=== PATIENT | female | born 1935 | race Caucasian/White ===

== ENCOUNTER 2024-08-22 13:41 | Inpatient (IN) | payer MEDICARE, OTHER, SELFPAY ==
[2024-08-22] VITALS (14 sets, daily range): BP systolic 142–167; BP diastolic 69–96; PULSE 78–92; RESP 18–34; TEMP 36.4–36.7; O2SAT 91–97; BMI 29.6
--- NOTE | 2024-08-22 14:07 | DI.RAD.S_ITS ---
PROCEDURE: XR CHEST 1V INDICATIONS: Shortness of breath TECHNIQUE: One view of the chest was acquired. COMPARISON: None. FINDINGS: Surgical changes and devices: None. Lungs and pleura: Lungs are abnormal with subpulmonic bilateral pleural effusions and suspected pneumonia at the medial lung bases bilaterally. No pleural effusions or pneumothorax. Mediastinum: Mediastinal contours appear normal. Heart size is normal. Bones and chest wall: No suspicious bony lesions. Overlying soft tissues appear unremarkable. IMPRESSION: Small to moderate-sized subpulmonic pleural effusions with consolidation at each lung base medially, reflecting either pneumonia or atelectasis. Dictated by: Олег Delgado M.D. on 08/22/2024 at 15:14 Approved by: Олег Delgado M.D. on 08/22/2024 at 15:15
--- NOTE | 2024-08-22 14:16 | EKG_ITS ---
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
--- NOTE | 2024-08-22 14:49 | ED_ITS ---
HPI - SOB/Dyspnea General Chief Complaint: Shortness of Breath/Dyspnea Stated Complaint: SOB, edema both legs , cough Time Seen by Provider: 08/22/24 14:49 Source: patient Mode of arrival: Wheelchair Limitations: no limitations History of Present Illness HPI Narrative: Patient is a 89-year-old female presenting for cough, bilateral lower extremity swelling and dyspnea. She denies any pain anywhere. States it symptoms has been ongoing persistent for the past several months but states that these symptoms have persisted therefore decided come into the ED for further evaluation treatment. Patient states that he has not seen a doctor in ?years. She states that all of her symptoms are just becoming ?tire some therefore decided come into the ED for further evaluation treatment. She denies any other symptoms such as headache visual disturbances chest pain or any other GI/ symptoms time. She does however state that she feels ?bubbling/discomfort to her right-sided abdomen. Related Data Allergies Allergy/AdvReac Type Severity Reaction Status Date / Time No Known Drug Allergies Allergy Verified 08/22/24 14:03 Review of Systems Review of Systems Narrative: General: Denies fever, chills, weight loss HEENT: Denies headache, eye drainage, eye irritation, head trauma, sore throat, voice change Cardiovascular: Denies any chest pain, palpitations, tachycardia Respiratory: Positive shortness of breath, cough, denies wheeze, stridor GI/: Denies any abdominal pain, nausea, vomiting, diarrhea, bright red blood per rectum, melanotic stools, urinary frequency, urinary retention, dysuria, hematuria MSK: Positive bilateral lower extremity swelling Skin: Denies any rashes, lesions, discoloration Neuro: Denies any headache, lightheadedness, dizziness, fainting, weakness Psych: Denies SI/HI Patient History Social History Smoking Status: Unknown if ever smoked Smoking Status: Unknown if ever smoked Exam Narrative Exam Narrative: General: Cooperative, well-developed, not in acute distress HEENT: Normocephalic, atraumatic, PERRLA, normal sclera, eyelids normal Neck: Active full range of motion, atraumatic Chest: Normal to inspection, negative crepitus, no overlying erythema ecchymosis Respiratory: Normal respiratory effort, not in acute respiratory distress, clear to auscultation bilaterally negative cough, wheeze, tachypnea, rhonchi, rales Cardiology: Regular rate rhythm negative gallop, murmur, rubs GI/: No tenderness to palpation, soft, non rigid, normal to inspection, exam deferred MSK: Full active range of motion in all 4 extremities, atraumatic, no tenderness to palpation of any bony prominences, +3 pitting edema to bilateral lower extremities Skin: No rashes or lesions noted Neuro: Alert awake oriented x3, moves all 4 extremities spontaneously, cranial nerves intact, able to answer all questions appropriately follows commands appropriately Psych: Cooperative, negative suicidal or homicidal ideations Initial Vital Signs Initial Vital Signs: Vital Signs Temperature 97.9 F 08/22/24 14:03 Pulse Rate 84 08/22/24 14:03 Respiratory Rate 18 08/22/24 14:03 Blood Pressure 160/74 H 08/22/24 14:03 Pulse Oximetry 94 08/22/24 14:03 Oxygen Delivery Method Room Air 08/22/24 14:03 Course Orders Ordered: ED Orders 08/22/24 14:07 XR chest 1V Stat EKG-12 Lead Stat Measure peak expiratory flow STAT RT Consult Eval and Treat STAT 08/22/24 14:49 Complete Blood Count AUTO DIFF Stat Comprehensive Metabolic Panel Stat D Dimer Stat Lipase Stat MAG [Magnesium] Stat NT-proBNP (BNP-Adult 18+) Stat Pathologist Review (for CBC) Stat Prothrombin Time INR Stat Troponin I Stat 08/22/24 14:51 US periph venous low extrem bi Stat 08/22/24 14:57 CT abdomen pelvis w con Stat 08/22/24 15:28 CT angio chest PE protocol Stat 08/22/24 16:14 PT [Prothrombin Time INR] Stat PTT Partial Thromboplastin Sunil Stat Packed Cells Stat Type and Screen Stat Vital Signs Vital signs: Vital Signs - 8 hr 08/22/24 14:03 08/22/24 14:55 08/22/24 14:55 Temperature 97.9 F Pulse Rate 84 88 Respiratory Rate 18 33 H Blood Pressure 160/74 H 142/78 H Pulse Oximetry 94 97 Oxygen Delivery Method Room Air 08/22/24 15:00 08/22/24 15:00 08/22/24 15:30 Temperature Pulse Rate 87 84 Respiratory Rate 34 H 29 H Blood Pressure 149/81 H Pulse Oximetry 97 96 Oxygen Delivery Method 08/22/24 15:31 08/22/24 15:31 08/22/24 15:44 Temperature Pulse Rate 85 87 Respiratory Rate 31 H 22 Blood Pressure 167/80 H Pulse Oximetry 94 91 Oxygen Delivery Method Room Air MDM - SOB/Dyspnea Differential Diagnosis Differential diagnosis: Likely acute exacerbation of chronic obstructive airways disease, congestive heart failure, community acquired pneumonia, asthma with exacerbation, pulmonary embolism and other (ACS, pneumonia, electrolyte abnormality) Lab Data 08/22/24 14:49 08/22/24 14:49 Labs: Lab Results 08/22/24 08/22/24 Range/Units 14:49 16:14 WBC 7.0 (4.5-11.0) X10^3/uL RBC 2.98 L (4.0-5.2) X10^6/uL Hgb 4.4 L* (12.0-16.0) g/dL Hct 16.5 L* (36-46) % MCV 55.5 L (80-100) fL MCH 14.9 L (26-34) PG MCHC 26.8 L (30-36) % RDW 22.6 H (11.6-14.8) % Plt Count 371 (150-400) X10^3/uL Neut % (Auto) 81.7 H (50-75) % Lymph % (Auto) 9.7 L (25-40) % [place] % (Auto) 5.9 (3-14) % Eos % (Auto) 1.1 L (2-4) % Baso % (Auto) 1.6 (0-2) % Neut # (Auto) 5700 (6937-2530) /uL Lymph # (Auto) 700 L (4963-3266) /uL [place] # (Auto) 400 (0-900) /uL Eos # (Auto) 100 (0-450) /uL Baso # (Auto) 100 (0-100) /uL RBC Morphology See below Hypochromasia 3+ H Anisocytosis 2+ H Microcytosis 3+ H Acanthocytes (Spur) 1+ H Schistocytes 1+ H PT 11.8 11.9 (9.4-12.5) SECONDS INR 1.0 1.1 (0.9-1.3) APTT 31 (25.1-36.5) SECONDS D-Dimer 563 H (<500) ng/ml Sodium 136 L (137-145) mmol/L Potassium 4.3 (3.4-5.1) mmol/L Chloride 107 (98-107) mmol/L Carbon Dioxide 21 L (22-32) mmol/L BUN 25 H (7-17) mg/dL Creatinine 1.48 H (0.52-1.04) mg/dL Estimated GFR 34 L (>60) mL/min BUN/Creatinine Ratio 16.9 (6-22) Glucose 140 H (70-99) mg/dL Lactate Cancelled Calcium 8.7 (8.4-10.2) mg/dL Magnesium 2.2 (1.6-2.3) mg/dL Total Bilirubin 0.9 (0.2-1.3) mg/dL AST 20 (14-36) IU/L ALT 13 (<35) IU/L Alkaline Phosphatase 88 (38-126) U/L Troponin I < 0.012 (0.01-0.034) ng/mL NT-Pro-B Natriuret Pep 7490 H (<450) pg/mL Total Protein 6.4 (6.3-8.2) g/dL Albumin 3.6 (3.5-5.0) g/dL Globulin 2.8 (1.7-4.1) g/dL Albumin/Globulin Ratio 1.3 (1.0-2.8) Lipase 79 (23-300) U/L Blood Type O Positive Antibody Screen Negative Crossmatch See Detail Imaging Data Chest x-ray: Radiologist's Impression: [address] [address] XRay Report Signed Patient: Leia Nash MR#: [id number] : 1935 Acct:[id number] Age/Sex: 89 / F Date of Service: 08/22/24 Loc: ED Accession Number: [id number] Procedure: XR chest 1V Ordering Provider: Guzman Roblero D.O. PROCEDURE: XR CHEST 1V INDICATIONS: Shortness of breath TECHNIQUE: One view of the chest was acquired. COMPARISON: None. FINDINGS: Surgical changes and devices: None. Lungs and pleura: Lungs are abnormal with subpulmonic bilateral pleural effusions and suspected pneumonia at the medial lung bases bilaterally. No pleural effusions or pneumothorax. Mediastinum: Mediastinal contours appear normal. Heart size is normal. Bones and chest wall: No suspicious bony lesions. Overlying soft tissues appear unremarkable. IMPRESSION: Small to moderate-sized subpulmonic pleural effusions with consolidation at each lung base medially, reflecting either pneumonia or atelectasis. CT scan - abdomen/pelvis: Radiologist's Impression: [place] [address] Ultrasound Report Signed Patient: Leia Nash MR#: [id number] : 1935 Acct:[id number] Age/Sex: 89 / F Date of Service: 08/22/24 Loc: ED Accession Number: [id number] Procedure: US periph venous low extrem bi Ordering Provider: Guzmna Roblero D.O. PROCEDURE: US PERIPH VENOUS LOW EXTREM BI INDICATIONS: swelling TECHNIQUE: Real-time imaging, as well as color and pulse Doppler interrogation, were performed of the deep veins of both legs from the inguinal ligament to the popliteal fossa, with documentation of the visualized calf veins. COMPARISON: None. FINDINGS: Right: The common femoral, femoral, popliteal, and the visualized calf veins are normally compressible, and free of intraluminal thrombus. Color and pulse Doppler demonstrate normal phasic intravascular flow. There is normal augmentation response to distal compression maneuver. Left: The common femoral, femoral, popliteal, and the visualized calf veins are normally compressible, and free of intraluminal thrombus. Color and pulse Doppler demonstrate normal phasic intravascular flow. There is normal augmentation response to distal compression maneuver. IMPRESSION: No findings of deep venous thrombosis in either lower extremity. CT angio chest: Radiologist's Impression: [place] [address] CT Scan Report Signed Patient: Leia Nash MR#: [id number] : 1935 Acct:[id number] Age/Sex: 89 / F Date of Service: 08/22/24 Loc: ED Accession Number: [id number] Procedure: CT angio chest PE protocol Ordering Provider: Guzman Roblero D.O. PROCEDURE: CT ANGIO CHEST PE PROTOCOL INDICATIONS: positive Ddimer TECHNIQUE: After the administration of intravenous contrast, 2 mm thick sections acquired from the pulmonary apices to the posterior costophrenic angles. 3-dimensional maximum intensity projection (MIP) coronal and sagittal reformats were then acquired through the thorax. For radiation dose reduction, the following was used: automated exposure control, adjustment of mA and/or kV according to patient size. COMPARISON: None. FINDINGS: Image quality: Diagnostic. Pulmonary arteries: Pulmonary arteries are normal in size, and demonstrate no intraluminal filling defects to suggest central pulmonary embolism. Lower Neck: No enlarged lymph nodes. Thyroid: No thyroid nodules which require sonographic follow up, per consensus guidelines. Axillae: No enlarged lymph nodes. Chest Wall: Unremarkable except for a posterior left paramedian cutaneous/subcutaneous ovoid lesion is seen measuring up to 2.6 cm in maximal transverse dimension on series 4, image 72. . Bones: Unremarkable. Lungs and Pleura: No pneumothorax. There are bilateral pleural effusions that are moderate in size on the left and moderately severe in size on the right. Within the aerated portion of the left lower lobe, superior segment, there is a rounded pulmonary solid-appearing 1.5 cm mass seen on series 5, image 128. The pleural effusions were best seen on contrast-enhanced abdominal CT scanning to be exudative in appearance. What appears to be atelectatic consolidation is seen at each lower lobe abutting the pleural effusions. A definite pneumonia or large mass is not associated. Heart: Heart size is normal. No pericardial effusion. Thoracic Vessels: No aortic aneurysm. 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 Mediastinum and Stefania: No enlarged lymph nodes. Esophagus: No wall thickening. No significant hiatal hernia. Upper Abdomen: Visualized upper abdomen solid organs and bowel loops appear normal. IMPRESSION: No pulmonary embolus. 1.5 cm pulmonary mass lesion superior segment left lower lobe. Bilateral pleural effusions that have been documented to show a subtle degree of pleural thickening and enhancement, exudative. Follow-up thoracentesis for decompression and cytology/bacterial cultures may be warranted. Ovoid 2.6 cm maximal dimension cutaneous/subcutaneous mid chest posterior left paramedian mass warrants clinical correlation. This could represent a metastatic focus but also may simply represent a sebaceous cyst. ECG Data Interpretation: EKG interpreted ED physician sinus at 89 beats per minute QTC 416, normal axis nonspecific ST changes no STEMI MDM Narrative Medical decision making narrative: Patient is a 89-year-old female without any significant past medical history coming into the ED from home for evaluation of lower extremity swelling ongoing persistent for several months, as well as dyspnea, she states it has been ongoing as well for several months and states that she has not seen a doctor in ?a long time she states that the symptoms are just ?trouble some and therefore was willing to come into the ED for further evaluation treatment. On exam patient with +3 pitting edema to bilateral lower extremities, she has not requiring any supplemental oxygen but she is dyspneic with conversation protecting airway. Lab work was consistent with a hemoglobin of 4.4, patient Hemoccult negative, patient without any other signs of hemorrhage. Consent was obtained and 1 unit PRBC ordered for now given patient with concerns for fluid overload. Troponin negative EKG nonischemic in nature, CTA negative for any PE but does show significant pleural effusion. CT of the abdomen also showing possible colon carcinoma. Findings were informed to patient and daughter they agree with being admitted at this time. The patient's management plan was discussed Dr. Mckeon, who agrees to admit the patient to their service and assumes care of this patient at this time. Full admission orders will be placed by the primary team. Discharge Plan Departure Patient Disposition: Admitted as Observation Clinical Impression: Anemia, Colon stricture, Pleural effusion Admit Date/Time: 08/22/24 17:06 Admit Provider: Fadi Mckeon
--- NOTE | 2024-08-22 14:57 | DI.CT.S_ITS ---
PROCEDURE: CT ABDOMEN PELVIS W CON INDICATIONS: right sided discomfort TECHNIQUE: After the administration of intravenous contrast, axial sections acquired from the lung bases to the pubic symphysis. Coronal and sagittal reformats were performed. For radiation dose reduction, the following was used: automated exposure control, adjustment of mA and/or kV according to patient size. COMPARISON: [facility], CR, XR CHEST 1V, 08/22/2024, 14:21. [facility], CT, CT ANGIO CHEST PE PROTOCOL, 08/22/2024, 15:36. FINDINGS: Image quality: Diagnostic. Lower Chest: Bilateral pleural effusions, moderate on the right and [id number] on the left. A small degree of pleural enhancement and thickening is identified bilaterally, exudative in appearance but nonspecific in etiology. Adjacent airspace consolidation is relatively mild and commensurate with expected atelectasis rather than definite pneumonia.. ABDOMEN: Liver: No definite solid mass. Within the left lateral hepatic segment 2 adjacent hypodensities are present showing slight nodular peripheral enhancement that may represent hemangiomas. Gallbladder: No radiopaque gallstones or wall thickening. Biliary ducts: No biliary dilation. Pancreas: No ductal dilation. Spleen: Size is within normal limits. Adrenal Glands: No adrenal nodules. Kidneys and Ureters: No hydronephrosis. No solid mass. No complex renal cystic lesion which requires follow up. Stomach and Bowel: Normal colonic caliber, without significant wall thickening except at the right colon centered on series 2, image 90 where increased mural thick enhancement and thickening is present constricting the lumen of the colon to the degree that a cecal malignancy is suspected. Adjacent adenopathy is not seen. The area of suspected malignancy measures 3.7 cm AP and also 3.7 cm transverse. Peritoneum: No abnormal intraperitoneal fluid. No free air. Ventral Wall: No significant ventral hernia. Abdominal Nodes: No retroperitoneal or mesenteric adenopathy by size criteria. Vessels: Aorta and inferior vena cava are normal in size. PELVIS: Pelvic Organs: Unremarkable. Bladder: No bladder wall thickening, accounting for underdistention. Pelvic Nodes: No enlarged lymph nodes. Miscellaneous: No inguinal hernias are seen. Bones: No aggressive osseous abnormality. IMPRESSION: Bilateral moderate to moderately severe exudative pleural effusions, with adjacent presumed atelectasis. Unexpected finding of a right colonic constricting segment of bowel abnormality worrisome for representing colon carcinoma. The wall of the colon in this area is thickened and the lumen is narrowed. Note is made of 2 separate but adjacent left lateral hepatic segment hypodensities that may represent hemangiomas but should be further assessed with targeted ultrasound electively to assist in determining whether these could represent metastatic foci. Dictated by: Олег Delgado M.D. on 08/22/2024 at 16:40 Approved by: Олег Delgado M.D. on 08/22/2024 at 16:50
[2024-08-22 15:02] LABS: INR 1.0 (0.9-1.3); Prothrombin Time 11.8 SECONDS (9.4-12.5)
[2024-08-22 15:08] LABS: Alanine Aminotransferase 13 IU/L (<35); Albumin 3.6 g/dL (3.5-5.0); Albumin Globulin Ratio 1.3 (1.0-2.8); Alkaline Phosphatase 88 U/L (38-126); Blood Urea Nitrogen 25 mg/dL (7-17); Calcium 8.7 mg/dL (8.4-10.2); Carbon Dioxide 21 mmol/L (22-32); Chloride 107 mmol/L (98-107); Estimated Glomerular Filt Rate 34 mL/min (>60); Globulin 2.8 g/dL (1.7-4.1); Glucose 140 mg/dL (70-99); HEMOLYSIS < 15 (0-50); Potassium 4.3 mmol/L (3.4-5.1); Sodium 136 mmol/L (137-145); Total Protein 6.4 g/dL (6.3-8.2)
[2024-08-22 15:09] LABS: Lipase 79 U/L (23-300); Magnesium 2.2 mg/dL (1.6-2.3)
[2024-08-22 15:16] LABS: Add Manual Diff / Slide Review NO; Lymphocytes Absolute Auto 700 /uL (1100-4500); Mean Corpuscular HGB Conc 26.8 % (30-36); Mean Corpuscular Hemoglobin 14.9 PG (26-34); Mean Corpuscular Volume 55.5 fL (80-100); Platelet Count 371 X10^3/uL (150-400)
[2024-08-22 15:17] LABS: Hemoglobin 4.4 g/dL (12.0-16.0)
[2024-08-22 15:18] LABS: Hematocrit 16.5 % (36-46)
[2024-08-22 15:19] LABS: NT-proBNP (BNP-Adult 18+) 7490 pg/mL (<450); Troponin I < 0.012 ng/mL (0.01-0.034)
--- NOTE | 2024-08-22 15:28 | DI.CT.S_ITS ---
PROCEDURE: CT ANGIO CHEST PE PROTOCOL INDICATIONS: positive Ddimer TECHNIQUE: After the administration of intravenous contrast, 2 mm thick sections acquired from the pulmonary apices to the posterior costophrenic angles. 3-dimensional maximum intensity projection (MIP) coronal and sagittal reformats were then acquired through the thorax. For radiation dose reduction, the following was used: automated exposure control, adjustment of mA and/or kV according to patient size. COMPARISON: None. FINDINGS: Image quality: Diagnostic. Pulmonary arteries: Pulmonary arteries are normal in size, and demonstrate no intraluminal filling defects to suggest central pulmonary embolism. Lower Neck: No enlarged lymph nodes. Thyroid: No thyroid nodules which require sonographic follow up, per consensus guidelines. Axillae: No enlarged lymph nodes. Chest Wall: Unremarkable except for a posterior left paramedian cutaneous/subcutaneous ovoid lesion is seen measuring up to 2.6 cm in maximal transverse dimension on series 4, image 72. . Bones: Unremarkable. Lungs and Pleura: No pneumothorax. There are bilateral pleural effusions that are moderate in size on the left and moderately severe in size on the right. Within the aerated portion of the left lower lobe, superior segment, there is a rounded pulmonary solid-appearing 1.5 cm mass seen on series 5, image 128. The pleural effusions were best seen on contrast-enhanced abdominal CT scanning to be exudative in appearance. What appears to be atelectatic consolidation is seen at each lower lobe abutting the pleural effusions. A definite pneumonia or large mass is not associated. Heart: Heart size is normal. No pericardial effusion. Thoracic Vessels: No aortic aneurysm. 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 Mediastinum and Stefania: No enlarged lymph nodes. Esophagus: No wall thickening. No significant hiatal hernia. Upper Abdomen: Visualized upper abdomen solid organs and bowel loops appear normal. IMPRESSION: No pulmonary embolus. 1.5 cm pulmonary mass lesion superior segment left lower lobe. Bilateral pleural effusions that have been documented to show a subtle degree of pleural thickening and enhancement, exudative. Follow-up thoracentesis for decompression and cytology/bacterial cultures may be warranted. Ovoid 2.6 cm maximal dimension cutaneous/subcutaneous mid chest posterior left paramedian mass warrants clinical correlation. This could represent a metastatic focus but also may simply represent a sebaceous cyst. Dictated by: Олег Delgado M.D. on 08/22/2024 at 16:50 Approved by: Олег Delgado M.D. on 08/22/2024 at 16:59
[2024-08-22 15:43] LABS: Anisocytosis 2+; Hypochromasia 3+
[2024-08-22 15:44] LABS: Microcytosis 3+
[2024-08-22 15:45] LABS: Acanthocytes 1+; Schistocytes 1+
[2024-08-22 16:32] LABS: INR 1.1 (0.9-1.3); Prothrombin Time 11.9 SECONDS (9.4-12.5)
[2024-08-22 16:34] LABS: PTT Partial Thromboplastin Tim 31 SECONDS (25.1-36.5)
--- NOTE | 2024-08-22 17:16 | PC.NURSE ---
While giving report, lab called stating blood ready, ICU Suresh RN is aware and agrees to start infusion. Charge KB in ED is hand carrying blood to ICU. Physician aware.
--- NOTE | 2024-08-22 18:14 | DI.ECHO.S_ITS ---
[place]+ [facility] : : [id number] : : [place] : : [id number] : : Phone: [phone] Echocardiogram Report + + :Name: LUCIANA VELAZQUEZ Study Date: 08/23/2024 Height: 65 in : :[facility] ReadingLocation: Weight: 178 lb : : Gender: Female BSA: 1.9 m2 : :: 1935 Age: 89 yrs BP: 163/82 mmHg: :Reason For Study: CONGESTIVE HEART FAILURE : :Ordering Physician: TANIKA, : :MADI Dyson Performed By: Malcolm Edmonds : :Referring: MADI SAGASTUME : + + Interpretation Summary The ejection fraction is estimated to be 45-50%. Diastolic function is indeterminate. The left atrium is moderately dilated. The right ventricle is mildly dilated. The right ventricular systolic function is normal. The right atrium is mildly dilated. There is mild tricuspid regurgitation. Pulmonary artery pressures cannot be estimated because of the lack of a measurable TR jet velocity but the IVC suggests a CVP of around 8 mmHg. There is a small left-sided pleural effusion. Procedure: A two-dimensional transthoracic echocardiogram with color flow and Doppler was performed. The study quality was technically good. There is no prior echocardiogram noted for this patient. The patient was in normal sinus rhythm during the exam. Left Ventricle: The left ventricle is normal in size. There is normal left ventricular wall thickness. There is no ventricular septal defect visualized. The ejection fraction is estimated to be 45-50%. There is mild global hypokinesis of the left ventricle. Diastolic function is indeterminate. Right Ventricle: The right ventricle is mildly dilated. The right ventricular systolic function is normal. Atria: The left atrium is moderately dilated. The right atrium is mildly dilated. There is no Doppler evidence for an interatrial shunt. Mitral Valve: The mitral valve leaflets appear mildly thickened. The mitral valve leaflets are mildly calcified. There is trace mitral regurgitation. Aortic Valve: The aortic valve is trileaflet. The aortic valve is slightly calcified. The aortic valve opens well. There is no aortic valve stenosis. No aortic regurgitation is present. Tricuspid Valve: The tricuspid valve leaflets are thin and pliable. There is mild tricuspid regurgitation. Pulmonary artery pressures cannot be estimated because of the lack of a measurable TR jet velocity but the IVC suggests a CVP of around 8 mmHg. Pulmonic Valve: The pulmonic valve is not well seen, but is grossly normal. There is no pulmonic valvular regurgitation. Great Vessels: The aortic root is normal size. The dimensions of the ascending aorta are normal. The pulmonary artery is not well visualized, but is probably normal size. The IVC is of normal diameter and collapses less than 50% with a sniff. This suggests a right atrial pressure of 8 mm Hg. Pericardium/ Pleura There is no pericardial effusion. There is a small left- sided pleural effusion. MMode/2D Measurements & Calculations LVIDd: 5.8 cm LVOT diam: 2.4 cm LVIDs: 4.5 cm Ao root diam: 3.6 cm FS: 22.5 % asc Aorta Diam: 3.6 cm EPSS: 1.0 cm IVSd: 0.97 cm LVPWd: 0.98 cm LV hernandez. diameter/BSA (cm/m^2): 3.1 LV sys. diameter/BSA (cm/m^2): 2.4 LA A2 area: 21.0 cm2 RA long axis: 5.1 cm LA A4 area: 33.6 cm2 RA area: 19.6 cm2 LA length (vol): 7.2 cm RA vol: 64.8 ml LA vol: 83.2 ml RA : 34.4 ml/m2 LA vol index: 44.2 ml/m2 IVC diam: 1.7 cm RVD1 (basal): 4.5 cm RVD2 (mid): 3.5 cm TAPSE: 2.0 cm Doppler Measurements & Calculations Ao V2 max: 169.5 cm/sec LVOT Max Germain: 109.9 cm/sec Ao V2 mean: 115.2 cm/sec LV V1 max P.8 mmHg Ao max P.5 mmHg LV V1 VTI: 23.8 cm Ao mean P.1 mmHg VANNESSA(I,D): 2.9 cm2 Ao V2 VTI: 36.8 cm VANNESSA(V,D): 2.9 cm2 sev ratio: 0.65 VANNESSA indexed to BSA (cm^2/m^2): 1.5 MV E max germain: 71.7 cm/sec TR max germain: 315.8 cm/sec MV A max germain: 100.8 cm/sec TR max P.9 mmHg MV E/A: 0.71 PA V2 max: 102.5 cm/sec Med Peak E' Germain: 6.0 cm/sec PA V2 mean: 67.4 cm/sec E/E' med: 11.9 PA mean P.1 mmHg Lat Peak E' Germain: 7.7 cm/sec PA pr(Accel): 68.7 mmHg E/E' lat: 9.3 E/e' average: 10.6 MV dec time: 0.16 sec SV([facility]): 106.6 ml Reading Physician:03:03 PM
--- NOTE | 2024-08-22 18:14 | PM.HP.1 ---
History of Present Illness History of Present Illness Time Patient Seen: 18:15 Chief complaint: SOB, edema both legs , cough Narrative: She is an 89-year-old female who lives locally, and independently. She is seen with her daughter. She was not seen a doctor since 24/01. She presents because of progressive dyspnea with exertion. Over the past several months she was had progressive gross leg edema and dyspnea on exertion. She denies orthopnea but has had a pronounced chronic cough. No fevers, chills, or chest pain. She denies a known history of heart problems or heart attacks as well as heart failure. In the emergency department she was found to be grossly anemic with a hemoglobin of 4.4, and have anasarca as well as a CT of the abdomen revealing a possible colon mass. She was unsure how much medical care she wants to have going forward, but she was okay with a blood transfusion and preliminary evaluation with echo. She is do not resuscitate in his quite firm on this. [facility] Social History household members: none Smoking Status: Unknown if ever smoked Meds Home Medications and Allergies Home Medications ?Medication ?Instructions ?Recorded ?Confirmed ?Type No Known Home Medications 08/22/24 08/22/24 History Allergies Allergy/AdvReac Type Severity Reaction Status Date / Time No Known Drug Allergies Allergy Verified 08/22/24 14:03 Review of Systems Review of Systems Narrative: All else reviewed and otherwise unremarkable except as noted in the history and physical. Exam Vital Signs (past 8 hours): - 08/22/24 14:03 08/22/24 14:55 08/22/24 14:55 Temperature 97.9 F Pulse Rate 84 88 Respiratory Rate 18 33 H Blood Pressure 160/74 H 142/78 H Pulse Oximetry 94 97 Oxygen Delivery Method Room Air 08/22/24 15:00 08/22/24 15:00 08/22/24 15:30 Temperature Pulse Rate 87 84 Respiratory Rate 34 H 29 H Blood Pressure 149/81 H Pulse Oximetry 97 96 Oxygen Delivery Method 08/22/24 15:31 08/22/24 15:31 08/22/24 15:44 Temperature Pulse Rate 85 87 Respiratory Rate 31 H 22 Blood Pressure 167/80 H Pulse Oximetry 94 91 Oxygen Delivery Method Room Air 08/22/24 16:10 08/22/24 16:30 08/22/24 16:30 Temperature Pulse Rate 92 H 89 Respiratory Rate 27 H 32 H Blood Pressure 166/75 H Pulse Oximetry 94 94 Oxygen Delivery Method 08/22/24 17:00 08/22/24 17:00 08/22/24 17:13 Temperature Pulse Rate 85 Respiratory Rate 29 H Blood Pressure 154/69 H Pulse Oximetry 91 Oxygen Delivery Method Room Air 08/22/24 17:19 08/22/24 17:37 08/22/24 17:51 Temperature 98.0 F 97.6 F Pulse Rate 78 91 H 83 Respiratory Rate 21 26 H 22 Blood Pressure 154/69 H 150/87 H 148/81 H Pulse Oximetry 91 Oxygen Delivery Method Room Air Oxygen Delivery Method Room Air Narrative Exam Narrative: NAD, alert and oriented, fluent speech, calm. She was very pale Normocephalic skull, EOMI, anicteric sclera, symmetric pupils. Oropharynx unremarkable, no droop. Neck supple, midline trachea, no adenopathy. Lungs clear, normal rate and effort. Heart regular, no murmur gallop or rub. Abdomen is soft, non distended and non tender. Extremities have gross edema bilaterally. Skin is free of rash or lesions. Joints are not swollen or deformed. Judgment appears to be normal. Objective ECG Impression: Intervals [place] Rate: 89 P: 64 OR: 174 QRS: -33 QRSD: 84 T: 140 QT: 342 QTc: 416 Interpretive Statements Normal sinus rhythm Left axis deviation Anteroseptal infarct , age undetermined Imaging Multiple studies:: Radiologist's impression: Chest CTA: No pulmonary embolus. 1.5 cm pulmonary mass lesion superior segment left lower lobe. Bilateral pleural effusions that have been documented to show a subtle degree of pleural thickening and enhancement, exudative. Follow-up thoracentesis for decompression and cytology/bacterial cultures may be warranted. Ovoid 2.6 cm maximal dimension cutaneous/subcutaneous mid chest posterior left paramedian mass warrants clinical correlation. This could represent a metastatic focus but also may simply represent a sebaceous cyst. Abdomen pelvis CT: Bilateral moderate to moderately severe exudative pleural effusions, with adjacent presumed atelectasis. Unexpected finding of a right colonic constricting segment of bowel abnormality worrisome for representing colon carcinoma. The wall of the colon in this area is thickened and the lumen is narrowed. Note is made of 2 separate but adjacent left lateral hepatic segment hypodensities that may represent hemangiomas but should be further assessed with targeted ultrasound electively to assist in determining whether these could represent metastatic foci. Leg ultrasound: No findings of deep venous thrombosis in either lower extremity. Chest x-ray: Small to moderate-sized subpulmonic pleural effusions with consolidation at each lung base medially, reflecting either pneumonia or atelectasis. Labs 08/22/24 14:49 08/22/24 14:49 Labs: Laboratory Results - last 24 hr 08/22/24 08/22/24 14:49 16:14 WBC 7.0 RBC 2.98 L Hgb 4.4 L* Hct 16.5 L* MCV 55.5 L MCH 14.9 L MCHC 26.8 L RDW 22.6 H Plt Count 371 Neut % (Auto) 81.7 H Lymph % (Auto) 9.7 L [place] % (Auto) 5.9 Eos % (Auto) 1.1 L Baso % (Auto) 1.6 Neut # (Auto) 5700 Lymph # (Auto) 700 L [place] # (Auto) 400 Eos # (Auto) 100 Baso # (Auto) 100 RBC Morphology See below Hypochromasia 3+ H Anisocytosis 2+ H Microcytosis 3+ H Acanthocytes (Spur) 1+ H Schistocytes 1+ H PT 11.8 11.9 INR 1.0 1.1 APTT 31 D-Dimer 563 H Sodium 136 L Potassium 4.3 Chloride 107 Carbon Dioxide 21 L BUN 25 H Creatinine 1.48 H Estimated GFR 34 L BUN/Creatinine Ratio 16.9 Glucose 140 H Lactate Cancelled Calcium 8.7 Magnesium 2.2 Total Bilirubin 0.9 AST 20 ALT 13 Alkaline Phosphatase 88 Troponin I < 0.012 NT-Pro-B Natriuret Pep 7490 H Total Protein 6.4 Albumin 3.6 Globulin 2.8 Albumin/Globulin Ratio 1.3 Lipase 79 Blood Type O Positive Antibody Screen Negative Crossmatch See Detail Assessment & Plan Assessment & Plan narrative: 1. Severe anemia, present on admission and active. Presumably chronic blood loss anemia. 2. Volume overload with evidence of congestive heart failure with anasarca and pleural effusions, present on admission and active. 3. 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 4. Abnormal CT of the abdomen with concern for colonic mass and possible metastatic findings. Plan: -transfuse blood, 4 units were ordered and we will be given slowly over the next 12 hours. -Lasix 20 mg IV Q 8 hours to start. -echo in the morning for presumed cardiac dysfunction of unclear etiology. -anemia panel -do not resuscitate -discuss possible next steps for evaluation once we have these 1st steps completed. The patient is a tentative participate with [employer] systems. Her daughter is her proxy decision maker. Time-Based Coding :: 35 min spent with patient and on the chart (including review of chart, obtaining history, exam, reviewing outside data, placing orders, documenting exam and treatment plan, and counseling patient) on 08/22. Quality MIPS - Admit I confirm the patient?s Advance Care Plan is present, Code status is documented, Surrogate decision maker is in patient?s record [If Yes, STOP here]: Yes MIPS - Meds 'Current medications' to include all prescriptions, [id number] products, herbals, cannabis/cannabidiol products, and vitamin/mineral/dietary (nutritional) supplements. I have utilized all available resources to obtain, update, or review the patient?s current medications. [If Yes, STOP here]: Yes
[2024-08-22] MEDS: FUROSEMIDE 20 MG/2 ML VIAL IV (18:40)
[2024-08-22] MEDS: HEPARIN 5,000 UNIT/ML VIAL 5000 UNIT SUBCUT (21:37)
[2024-08-23] VITALS (10 sets, daily range): BP systolic 140–168; BP diastolic 65–100; PULSE 74–84; RESP 18–29; TEMP 36–36.7; O2SAT 91–94
[2024-08-23] MEDS: FUROSEMIDE 20 MG/2 ML VIAL IV ×3 (04:14→17:38)
[2024-08-23 06:08] LABS: Alanine Aminotransferase 12 IU/L (<35); Albumin 3.5 g/dL (3.5-5.0); Albumin Globulin Ratio 1.3 (1.0-2.8); Alkaline Phosphatase 81 U/L (38-126); Blood Urea Nitrogen 25 mg/dL (7-17); Calcium 8.6 mg/dL (8.4-10.2); Carbon Dioxide 25 mmol/L (22-32); Chloride 106 mmol/L (98-107); Estimated Glomerular Filt Rate 42 mL/min (>60); Globulin 2.7 g/dL (1.7-4.1); Glucose 78 mg/dL (70-99); HEMOLYSIS < 15 (0-50); Magnesium 2.0 mg/dL (1.6-2.3); Potassium 4.2 mmol/L (3.4-5.1); Sodium 136 mmol/L (137-145); Total Protein 6.2 g/dL (6.3-8.2)
[2024-08-23 06:26] LABS: Hematocrit 23.1 % (36-46); Mean Corpuscular HGB Conc 29.8 % (30-36); Mean Corpuscular Hemoglobin 18.9 PG (26-34); Mean Corpuscular Volume 63.5 fL (80-100); Platelet Count 337 X10^3/uL (150-400)
[2024-08-23 06:27] LABS: Hemoglobin 6.9 g/dL (12.0-16.0)
--- NOTE | 2024-08-23 08:35 | P.PN_ITS ---
Subjective Subjective Date Patient Seen: 08/23/24 Interval history: She remains very pale, somewhat disconnected from the seriousness of her condition, deferring to her daughter, disparaging/unenthusiastic about further interactions with medical treatments. The hemoglobin after 2 units has risen from 4.4 up to 6.9. The BMP is normal with a creatinine of 1.23 and total bilirubin of 1.9. The BNP is 7490. An echocardiogram is pending. She tells me that she lives in [place] with her daughter. Her daughter is present in the room and it is clear that she has had to back off from encouraging her mother to seek routine medical care until this point. She has apparently been orthopneic, sitting bolt upright in a recliner for the last 2 months in order to breathe. She says that she considers this a ?minor inconvenience. ? MCV 63.5. She is very pale. She appears to have a colon mass on CT scan. Exam Vital Signs (past 8 hours): - 08/23/24 04:00 08/23/24 07:59 08/23/24 08:15 Temperature 97.6 F 97.4 F L Pulse Rate 77 84 83 Respiratory Rate 21 22 21 Blood Pressure 168/89 H 140/65 162/83 H Pulse Oximetry 92 Oxygen Delivery Method Room Air Oxygen Flow Rate 0 Narrative Exam Narrative: Alert and oriented x3. Sitting at a 90 degree angle in bed, unbothered and quite comfortable, apparently breathing better with orthopnea. No apparent distress Very pale and mildly icteric Heart is regular rate and rhythm without murmur Lungs are clear to auscultation bilaterally Abdomen is soft, bowel sounds positive, nontender, no organomegaly. Extremities have no ankle edema Objective Labs 08/23/24 04:40 08/23/24 04:40 Labs: Laboratory Results - last 24 hr 08/22/24 08/22/24 08/23/24 14:49 16:14 04:40 WBC 7.0 6.9 RBC 2.98 L 3.64 L Hgb 4.4 L* 6.9 L* Hct 16.5 L* 23.1 L MCV 55.5 L 63.5 L D MCH 14.9 L 18.9 L MCHC 26.8 L 29.8 L D RDW 22.6 H 31.4 H Plt Count 371 337 Neut % (Auto) 81.7 H Lymph % (Auto) 9.7 L [place] % (Auto) 5.9 Eos % (Auto) 1.1 L Baso % (Auto) 1.6 Neut # (Auto) 5700 Lymph # (Auto) 700 L [place] # (Auto) 400 Eos # (Auto) 100 Baso # (Auto) 100 RBC Morphology See below Hypochromasia 3+ H Anisocytosis 2+ H Microcytosis 3+ H Acanthocytes (Spur) 1+ H Schistocytes 1+ H PT 11.8 11.9 INR 1.0 1.1 APTT 31 D-Dimer 563 H Sodium 136 L 136 L Potassium 4.3 4.2 Chloride 107 106 Carbon Dioxide 21 L 25 BUN 25 H 25 H Creatinine 1.48 H 1.23 H Estimated GFR 34 L 42 L BUN/Creatinine Ratio 16.9 20.3 Glucose 140 H 78 Lactate Cancelled Calcium 8.7 8.6 Magnesium 2.2 2.0 Total Bilirubin 0.9 1.9 H AST 20 22 ALT 13 12 Alkaline Phosphatase 88 81 Troponin I < 0.012 NT-Pro-B Natriuret Pep 7490 H Total Protein 6.4 6.2 L Albumin 3.6 3.5 Globulin 2.8 2.7 Albumin/Globulin Ratio 1.3 1.3 Lipase 79 Blood Type O Positive Antibody Screen Negative Crossmatch See Detail [facility] Social History household members: none Smoking Status: Unknown if ever smoked Assessment & Plan Assessment & Plan narrative: 1. Severe anemia, present on admission and active. Presumably chronic blood loss anemia related to Colon Mass. 2. Volume overload with evidence of congestive heart failure with anasarca and pleural effusions, present on admission and active. 3. 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 4. Abnormal CT of the abdomen with concern for colonic mass and possible metastatic findings. Plan: -transfuse blood, 2 more units were ordered (total 4) and will be given slowly over the next 12 hours. -Lasix 20 mg IV Q 8 hours -echocardiogram report pending -anemia panel -do not resuscitate -discuss possible next steps for evaluation once we have these 1st steps completed. The patient is quite clear that she would like to be placed and would likely decline inpatient or outpatient colonoscopy to clarify whether she indeed does have colon cancer as the cause of her microcytic blood loss anemia. This was discussed back and forth between myself, the patient and her daughter. She is somewhat evasive but the conclusion is that she would likely not do any further workup. Disposition: alf facility for chronic end of life care/hospice. Her daughter is her proxy decision maker. Time-Based Coding :: [TOTAL MINUTES] spent with patient and on the chart (including review of chart, obtaining history, exam, reviewing outside data, placing orders, documenting exam and treatment plan, and counseling patient) on [DATE].
[2024-08-23] MEDS: HEPARIN 5,000 UNIT/ML VIAL 5000 UNIT SUBCUT ×2 (09:49→21:53)
[2024-08-23] MEDS: SODIUM CHLORIDE 0.9% FLUSH 10 ML IV ×2 (09:49→21:53)
--- NOTE | 2024-08-23 14:19 | PT-IP ANOTE ---
PT eval order received. EMR reviewed. pt with low H&H and still receiving blood transfusion. Hold PT today and hospitalist agreed. will await new H&H lab result after transfusion.
--- NOTE | 2024-08-23 16:09 | CM.DANOTE ---
Initial DCP Assessment Note Pt is a 89 yo female, resident of [place], In the emergency department patient found to be anemic; CT of the abdomen revealing a possible colon mass. Patient receiving blood transfusion today; therapies on hold. Patient is a [employer] and has not seen a doctor since 2011 PCP: None Payer: [facility]/ for [facility] Reviewed chart, pt discussed in multidisciplinary rounds this morning. Dr Foster reports patient would like Hospice at a facility. Met w/patient who reports she lives alone, independently. Patient A+Ox4, Daughter is supportive and assists as needed. Discussed dispo options, facility options and Hospice. 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 Patient unsure which SNF she would prefer and unsure whether she wants hospice now. Social work team will plan to follow clinical course closely. Anticipate additional conversation re dispo options when daughter is at bedside. Therapies pending. 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 No Prior Living House Arrangements Household Members none Type of Drives own vehicle transporation used prior to admit Independent with ADL Yes 's Is patient alert and Yes oriented? Needs Assistance Home Chores / Shopping With Comment Daughter helps as needed
[2024-08-23 17:00] LABS: Add Manual Diff / Slide Review NO; Hematocrit 30.3 % (36-46); Hemoglobin 9.3 g/dL (12.0-16.0); Lymphocytes Absolute Auto 700 /uL (1100-4500); Mean Corpuscular HGB Conc 30.7 % (30-36); Mean Corpuscular Hemoglobin 20.7 PG (26-34); Mean Corpuscular Volume 67.5 fL (80-100); Platelet Count 331 X10^3/uL (150-400)
[2024-08-23 17:11] LABS: Blood Urea Nitrogen 26 mg/dL (7-17); Calcium 8.4 mg/dL (8.4-10.2); Carbon Dioxide 27 mmol/L (22-32); Chloride 104 mmol/L (98-107); Estimated Glomerular Filt Rate 35 mL/min (>60); Glucose 93 mg/dL (70-99); HEMOLYSIS 17 (0-50); Potassium 4.3 mmol/L (3.4-5.1); Sodium 137 mmol/L (137-145)
[2024-08-23 17:18] LABS: Anisocytosis 4+
[2024-08-24 01:00] VITALS: BP 162/93; PULSE 70; RESP 17; TEMP 36.3; O2SAT 91
[2024-08-24] MEDS: FUROSEMIDE 20 MG/2 ML VIAL IV ×3 (02:04→17:41)
[2024-08-24 05:00] VITALS: BP 153/100; PULSE 79; RESP 18; TEMP 36.6; O2SAT 90
[2024-08-24 05:30] LABS: Alanine Aminotransferase 12 IU/L (<35); Albumin 3.5 g/dL (3.5-5.0); Albumin Globulin Ratio 1.3 (1.0-2.8); Alkaline Phosphatase 82 U/L (38-126); Blood Urea Nitrogen 26 mg/dL (7-17); Calcium 8.6 mg/dL (8.4-10.2); Carbon Dioxide 29 mmol/L (22-32); Chloride 101 mmol/L (98-107); Estimated Glomerular Filt Rate 37 mL/min (>60); Globulin 2.8 g/dL (1.7-4.1); Glucose 81 mg/dL (70-99); HEMOLYSIS < 15 (0-50); Magnesium 1.7 mg/dL (1.6-2.3); Potassium 3.4 mmol/L (3.4-5.1); Sodium 136 mmol/L (137-145); Total Protein 6.3 g/dL (6.3-8.2)
[2024-08-24 06:54] LABS: Hematocrit 29.7 % (36-46); Hemoglobin 9.2 g/dL (12.0-16.0); Mean Corpuscular HGB Conc 31.0 % (30-36); Mean Corpuscular Hemoglobin 20.8 PG (26-34); Mean Corpuscular Volume 67.1 fL (80-100); Platelet Count 343 X10^3/uL (150-400)
--- NOTE | 2024-08-24 07:54 | P.PN_ITS ---
Subjective Subjective Date Patient Seen: 08/24/24 Interval history: Her blood pressure is 153/100 today. The hemoglobin has risen from 6.9 after 2 units now up to 9.2 after 4 units of blood. The BMP is normal with a creatinine of 1.37 and a potassium of 3.4. The liver enzymes are normal except for a total bilirubin of 2.1. She has received additional magnesium and potassium today per pharmacy. Ejection fraction on echocardiogram is 45-50%. Exam Vital Signs (past 8 hours): - 08/24/24 01:00 08/24/24 05:00 Temperature 97.3 F L 98 F Pulse Rate 70 79 Respiratory Rate 17 18 Blood Pressure 162/93 H 153/100 H Pulse Oximetry 91 90 L Oxygen Flow Rate 0 0 Oxygen Delivery Method Room Air Oxygen Flow Rate 0 Narrative Exam Narrative: Alert and oriented x3. No apparent distress. She is not quite as rigidly leaning forward to catch her breath while resting in bed. Heart is regular rate and rhythm without murmur. Lungs are clear to auscultation bilaterally. Extremities have 1+ bilateral pitting edema. Abdomen is soft, bowel sounds positive, nontender, no organomegaly. She remains somewhat slow to process and indecisive. Objective Labs 08/24/24 04:20 08/24/24 04:20 Labs: Laboratory Results - last 24 hr 08/22/24 08/23/24 08/24/24 16:14 16:54 04:20 WBC 7.7 7.3 RBC 4.50 4.43 Hgb 9.3 L 9.2 L Hct 30.3 L 29.7 L MCV 67.5 L D 67.1 L MCH 20.7 L 20.8 L MCHC 30.7 31.0 RDW 32.4 H 32.8 H Plt Count 331 343 Neut % (Auto) 75.8 H Lymph % (Auto) 9.3 L [place] % (Auto) 10.3 Eos % (Auto) 3.5 Baso % (Auto) 1.1 Neut # (Auto) 5800 Lymph # (Auto) 700 L [place] # (Auto) 800 Eos # (Auto) 300 Baso # (Auto) 100 RBC Morphology See below Anisocytosis 4+ H D Sodium 137 136 L Potassium 4.3 3.4 Chloride 104 101 Carbon Dioxide 27 29 BUN 26 H 26 H Creatinine 1.43 H 1.37 H Estimated GFR 35 L 37 L BUN/Creatinine Ratio 18.2 19.0 Glucose 93 81 Calcium 8.4 8.6 Magnesium 1.7 Total Bilirubin 2.1 H AST 20 ALT 12 Alkaline Phosphatase 82 Total Protein 6.3 Albumin 3.5 Globulin 2.8 Albumin/Globulin Ratio 1.3 Blood Type O Positive Antibody Screen Negative Crossmatch See Detail [facility] Social History household members: none Smoking Status: Unknown if ever smoked Assessment & Plan Assessment & Plan narrative: 1. Severe anemia, present on admission and active. 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 2. Volume overload with evidence of congestive heart failure with anasarca and pleural effusions, EF on Echo of 45-50%,present on admission and active. 3. 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 4. Abnormal CT of the abdomen with concern for right sided colonic mass and possible metastatic findings. 5. [employer] perspective on health care interventions. Plan: Lasix 20 mg IV q.8 hours Hemoglobin up to 9.2 after 4 units of packed red blood cells Echocardiogram 45-50% ejection fraction. Surgery consult for colonoscopy planned for 08/26. -do not resuscitate Now that she is feeling better she is no longer as focused on moving to hospice at a facility and would like to talk about doing a workup of the right colon mass/anemia. She was seen by General surgery and consented to a colonoscopy which will be done after a bowel prep in 2 days. This was discussed also with her daughter. Disposition: detention facility or discharge to home for chronic end of life care/hospice or colon mass workup? Her daughter is her proxy decision maker. Time-Based Coding :: [TOTAL MINUTES] spent with patient and on the chart (including review of chart, obtaining history, exam, reviewing outside data, placing orders, documenting exam and treatment plan, and counseling patient) on [DATE].
[2024-08-24 08:00] VITALS: BP 154/79; PULSE 83; RESP 23; TEMP 36.1; O2SAT 90
[2024-08-24] MEDS: MAGNESIUM CHLORIDE 64 MG TABLET 128 MG PO (08:48)
[2024-08-24] MEDS: HEPARIN 5,000 UNIT/ML VIAL 5000 UNIT SUBCUT ×2 (08:48→20:48)
[2024-08-24] MEDS: POTASSIUM CHLORIDE 20 MEQ TAB 40 MEQ PO (08:48)
[2024-08-24] MEDS: SODIUM CHLORIDE 0.9% FLUSH 10 ML IV ×2 (08:49→20:48)
--- NOTE | 2024-08-24 11:53 | PM.CN.IH.1 ---
History of Present Illness Consult details Date Patient Seen: 08/24/24 Time Patient Seen: 11:53 Chief complaint: SOB, edema both legs , cough Reason for consult: Anemia Narrative: The patient is an 89-year-old female who recently presented with worsening dyspnea on exertion. She had a cardiac workup as part of that workup had a blood count which showed a hemoglobin of 4. Further workup included CT scan of the abdomen and pelvis which revealed a mass in the right colon. There are some hypodense areas in the liver which need to be further clarified. She received 4 units of blood with a follow-up hemoglobin of 9. Meds Home Medications and Allergies Home Medications ?Medication ?Instructions ?Recorded ?Confirmed ?Type No Known Home Medications 08/22/24 08/22/24 History Allergies Allergy/AdvReac Type Severity Reaction Status Date / Time No Known Drug Allergies Allergy Verified 08/22/24 14:03 Review of Systems Review of Systems ROS: Yes All systems reviewed with the patient and are negative except as otherwise documented Exam Vital Signs (past 8 hours): - 08/24/24 05:00 08/24/24 07:00 08/24/24 08:00 Temperature 98 F 97.0 F L Pulse Rate 79 83 Respiratory Rate 18 23 Blood Pressure 153/100 H 154/79 H Pulse Oximetry 90 L 90 L Oxygen Delivery Method Room Air Oxygen Flow Rate 0 0 Oxygen Delivery Method Room Air Oxygen Flow Rate 0 Narrative Exam Narrative: Patient is alert and oriented. Neck is supple Chest is clear to auscultation bilaterally Cardiac reveals a regular rate and rhythm Abdomen is mildly distended soft, nontender, with active bowel sounds. There are no palpable masses. Extremities reveal pitting edema in the distal lower extremities bilaterally as well as the feet Objective Imaging CT scan - abdomen: Radiologist's impression: PROCEDURE: CT ABDOMEN PELVIS W CON INDICATIONS: right sided discomfort TECHNIQUE: After the administration of intravenous contrast, axial sections acquired from the lung bases to the pubic symphysis. Coronal and sagittal reformats were performed. For radiation dose reduction, the following was used: automated exposure control, adjustment of mA and/or kV according to patient size. COMPARISON: [facility], CR, XR CHEST 1V, 08/22/2024, 14:21. [facility], CT, CT ANGIO CHEST PE PROTOCOL, 08/22/2024, 15:36. FINDINGS: Image quality: Diagnostic. Lower Chest: Bilateral pleural effusions, moderate on the right and [id number] on the left. A small degree of pleural enhancement and thickening is identified bilaterally, exudative in appearance but nonspecific in etiology. Adjacent airspace consolidation is relatively mild and commensurate with expected atelectasis rather than definite pneumonia.. ABDOMEN: Liver: No definite solid mass. Within the left lateral hepatic segment 2 adjacent hypodensities are present showing slight nodular peripheral enhancement that may represent hemangiomas. Gallbladder: No radiopaque gallstones or wall thickening. Biliary ducts: No biliary dilation. Pancreas: No ductal dilation. Spleen: Size is within normal limits. Adrenal Glands: No adrenal nodules. Kidneys and Ureters: No hydronephrosis. No solid mass. No complex renal cystic lesion which requires follow up. Stomach and Bowel: Normal colonic caliber, without significant wall thickening except at the right colon centered on series 2, image 90 where increased mural thick enhancement and thickening is present constricting the lumen of the colon to the degree that a cecal malignancy is suspected. Adjacent adenopathy is not seen. The area of suspected malignancy measures 3.7 cm AP and also 3.7 cm transverse. Peritoneum: No abnormal intraperitoneal fluid. No free air. Ventral Wall: No significant ventral hernia. Abdominal Nodes: No retroperitoneal or mesenteric adenopathy by size criteria. Vessels: Aorta and inferior vena cava are normal in size. PELVIS: Pelvic Organs: Unremarkable. Bladder: No bladder wall thickening, accounting for underdistention. Pelvic Nodes: No enlarged lymph nodes. Miscellaneous: No inguinal hernias are seen. Bones: No aggressive osseous abnormality. IMPRESSION: Bilateral moderate to moderately severe exudative pleural effusions, with adjacent presumed atelectasis. Unexpected finding of a right colonic constricting segment of bowel abnormality worrisome for representing colon carcinoma. The wall of the colon in this area is thickened and the lumen is narrowed. Note is made of 2 separate but adjacent left lateral hepatic segment hypodensities that may represent hemangiomas but should be further assessed with targeted ultrasound electively to assist in determining whether these could represent metastatic foci. Dictated by: Олег Delgado M.D. on 08/22/2024 at 16:40 Approved by: Олег Delgado M.D. on 08/22/2024 at 16:50 Labs 08/24/24 04:20 08/24/24 04:20 Labs: Laboratory Results - last 24 hr 08/22/24 08/23/24 08/24/24 16:14 16:54 04:20 WBC 7.7 7.3 RBC 4.50 4.43 Hgb 9.3 L 9.2 L Hct 30.3 L 29.7 L MCV 67.5 L D 67.1 L MCH 20.7 L 20.8 L MCHC 30.7 31.0 RDW 32.4 H 32.8 H Plt Count 331 343 Neut % (Auto) 75.8 H Lymph % (Auto) 9.3 L [place] % (Auto) 10.3 Eos % (Auto) 3.5 Baso % (Auto) 1.1 Neut # (Auto) 5800 Lymph # (Auto) 700 L [place] # (Auto) 800 Eos # (Auto) 300 Baso # (Auto) 100 RBC Morphology See below Anisocytosis 4+ H D Sodium 137 136 L Potassium 4.3 3.4 Chloride 104 101 Carbon Dioxide 27 29 BUN 26 H 26 H Creatinine 1.43 H 1.37 H Estimated GFR 35 L 37 L BUN/Creatinine Ratio 18.2 19.0 Glucose 93 81 Calcium 8.4 8.6 Magnesium 1.7 Total Bilirubin 2.1 H AST 20 ALT 12 Alkaline Phosphatase 82 Total Protein 6.3 Albumin 3.5 Globulin 2.8 Albumin/Globulin Ratio 1.3 Crossmatch See Detail PFSH Social History household members: none Tobacco & Substance Use Smoking Status: Unknown if ever smoked Assessment & Plan Assessment and plan (1) Pleural effusion: Status: Acute (2) Colon stricture: Status: Acute (3) Anemia: Status: Acute Plan Plan is to prep the patient for colonoscopy and schedule her for colonoscopy during this inpatient admission. We will plan to start her on clear liquids for now and we will schedule bowel prep for the day before when we can get the colonoscopy planned. Time-Based Coding :: [TOTAL MINUTES] spent with patient and on the chart (including review of chart, obtaining history, exam, reviewing outside data, placing orders, documenting exam and treatment plan, and counseling patient) on [DATE]. PROFEE Charge Codes Inpatient or Observation consultation: 02006
[2024-08-24 12:00] VITALS: BP 144/86; PULSE 78; RESP 27; TEMP 36.4; O2SAT 94
--- NOTE | 2024-08-24 12:29 | PT-IP ANOTE ---
PT consult received. PT reviewed chart and clear with attending. Pt adm with anemia in setting of CA and has had blood given. Pt sleeping upon arrival and awakens to voice. She declines PT x2 despite gentle encouragement to getting up to chair if PT brings one into room. Pt with overall jaudiced skin color today. Con't PT efforts next date.
--- NOTE | 2024-08-24 12:40 | CM.DPNOTE ---
DCP Note CIDER MAKER reviewed EMR per provider, pt either may elect to pursue colonoscopy vs dc to long term with hospice support. Per RN, after talking with surgeon, preference is for colonoscopy. Scheduled for Sunday. CM team will continue to follow closely for DCP coordination needs post colonoscopy. HOSSEIN Taveras
[2024-08-24 15:18] LABS: HEMOLYSIS < 15 (0-50); Iron 24 ug/dL (37-170)
[2024-08-24 15:28] LABS: Percent Iron Saturation 5 % (15-50); Total Iron Binding Capacity 461 ug/dL (265-497); Transferrin 374 mg/dL (206-381)
[2024-08-24 16:00] VITALS: BP 146/76; PULSE 76; RESP 24; TEMP 36.2; O2SAT 92
[2024-08-24 16:25] LABS: Folate 5.2 ng/mL (2.76-20.0); Vitamin B12 233 pg/mL (239-931)
[2024-08-24 17:16] LABS: Add Manual Diff / Slide Review NO; Hematocrit 29.9 % (36-46); Hemoglobin 9.1 g/dL (12.0-16.0); Lymphocytes Absolute Auto 700 /uL (1100-4500); Mean Corpuscular HGB Conc 30.4 % (30-36); Mean Corpuscular Hemoglobin 20.6 PG (26-34); Mean Corpuscular Volume 67.8 fL (80-100); Platelet Count 341 X10^3/uL (150-400)
[2024-08-24 17:37] LABS: Anisocytosis 4+
[2024-08-24 20:00] VITALS: BP 142/77; PULSE 78; RESP 16; TEMP 36.3; O2SAT 97
[2024-08-25] VITALS (12 sets, daily range): BP systolic 151–172; BP diastolic 83–94; PULSE 67–84; RESP 18–37; TEMP 36.1–36.8; O2SAT 94–98
[2024-08-25] MEDS: FUROSEMIDE 20 MG/2 ML VIAL IV ×3 (03:44→18:18)
[2024-08-25 05:39] LABS: Alanine Aminotransferase 11 IU/L (<35); Albumin 3.3 g/dL (3.5-5.0); Albumin Globulin Ratio 1.2 (1.0-2.8); Alkaline Phosphatase 77 U/L (38-126); Blood Urea Nitrogen 24 mg/dL (7-17); Calcium 8.4 mg/dL (8.4-10.2); Carbon Dioxide 29 mmol/L (22-32); Chloride 102 mmol/L (98-107); Estimated Glomerular Filt Rate 46 mL/min (>60); Globulin 2.7 g/dL (1.7-4.1); Glucose 79 mg/dL (70-99); HEMOLYSIS < 15 (0-50); Magnesium 1.8 mg/dL (1.6-2.3); Potassium 3.7 mmol/L (3.4-5.1); Sodium 137 mmol/L (137-145); Total Protein 6.0 g/dL (6.3-8.2)
[2024-08-25 07:23] LABS: Hematocrit 30.2 % (36-46); Hemoglobin 9.2 g/dL (12.0-16.0); Mean Corpuscular HGB Conc 30.4 % (30-36); Mean Corpuscular Hemoglobin 20.6 PG (26-34); Mean Corpuscular Volume 67.8 fL (80-100); Platelet Count 324 X10^3/uL (150-400)
--- NOTE | 2024-08-25 07:57 | PM.PN.1 ---
Subjective Subjective Interval history: S: She was doing well overall, she was had great improvement for her leg edema with diuresis. She was scheduled for colonoscopy on August 26. She was having intermittent rectal blood and her nurse noticed stay prolapse of some type of tissue today out of her rectum. Surgery came by and tried to reduce this, this appears to be protruding through the anus. Appears to be consistent with a possible tubular adenoma. She denies any pain. Exam Vital Signs (past 8 hours): - 08/25/24 00:00 08/25/24 04:00 Pulse Rate 73 72 Respiratory Rate 18 18 Blood Pressure 172/91 H 163/83 H Pulse Oximetry 94 94 Oxygen Flow Rate 0 0 Oxygen Delivery Method Room Air Oxygen Flow Rate 0 Narrative Exam Narrative: NAD, alert and oriented. Fluent speech. Lungs are clear, normal rate and effort. Heart is regular, no murmur gallop or rub. Abdomen is soft, non distended. Extremities are free of edema. Bloody soft mass protruding from the anus and reduction attempts were made by the surgeon. Objective Labs 08/25/24 04:50 08/25/24 04:40 Labs: Laboratory Results - last 24 hr 08/24/24 08/24/24 08/25/24 04:20 17:05 04:40 WBC 7.9 RBC 4.41 Hgb 9.1 L Hct 29.9 L MCV 67.8 L MCH 20.6 L MCHC 30.4 RDW 33.4 H Plt Count 341 Neut % (Auto) 77.8 H Lymph % (Auto) 9.2 L [place] % (Auto) 9.2 Eos % (Auto) 2.8 Baso % (Auto) 1.0 Neut # (Auto) 6100 Lymph # (Auto) 700 L [place] # (Auto) 700 Eos # (Auto) 200 Baso # (Auto) 100 RBC Morphology See below Anisocytosis 4+ H Sodium 137 Potassium 3.7 Chloride 102 Carbon Dioxide 29 BUN 24 H Creatinine 1.15 H Estimated GFR 46 L BUN/Creatinine Ratio 20.9 Glucose 79 Calcium 8.4 Magnesium 1.8 Iron 24 L TIBC 461 % Saturation 5 L Transferrin 374 Total Bilirubin 1.6 H AST 20 ALT 11 Alkaline Phosphatase 77 Total Protein 6.0 L Albumin 3.3 L Globulin 2.7 Albumin/Globulin Ratio 1.2 Vitamin B12 233 L Folate 5.2 08/25/24 04:50 WBC 6.6 RBC 4.45 Hgb 9.2 L Hct 30.2 L MCV 67.8 L MCH 20.6 L MCHC 30.4 RDW 33.5 H Plt Count 324 Neut % (Auto) Lymph % (Auto) [place] % (Auto) Eos % (Auto) Baso % (Auto) Neut # (Auto) Lymph # (Auto) [place] # (Auto) Eos # (Auto) Baso # (Auto) RBC Morphology Anisocytosis Sodium Potassium Chloride Carbon Dioxide BUN Creatinine Estimated GFR BUN/Creatinine Ratio Glucose Calcium Magnesium Iron TIBC % Saturation Transferrin Total Bilirubin AST ALT Alkaline Phosphatase Total Protein Albumin Globulin Albumin/Globulin Ratio Vitamin B12 Folate [facility] Social History household members: none Smoking Status: Unknown if ever smoked Assessment & Plan Assessment & Plan narrative: 1. Severe anemia, present on admission and active. 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 2. Volume overload with evidence of congestive heart failure with anasarca and pleural effusions, EF on Echo of 45-50%,present on admission and active. 3. 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 4. Abnormal CT of the abdomen with concern for right sided colonic mass and possible metastatic findings. 5. Orthod[employer] perspective on health care interventions. 6. Prolapse of possible tubular adenoma with II through the rectum today, new and active. Plan: Continue Lasix 20 mg IV q.8 hours Hemoglobin up to 9.2 after 4 units of packed red blood cells Echocardiogram 45-50% ejection fraction. Surgery consult for colonoscopy planned for 08/26. They will either biopsy or and/or try to remove and biopsy the protruding mass from today. -do not resuscitate Time-Based Coding :: [TOTAL MINUTES] spent with patient and on the chart (including review of chart, obtaining history, exam, reviewing outside data, placing orders, documenting exam and treatment plan, and counseling patient) on [DATE].
[2024-08-25] MEDS: HEPARIN 5,000 UNIT/ML VIAL 5000 UNIT SUBCUT ×2 (09:47→20:45)
[2024-08-25] MEDS: SODIUM CHLORIDE 0.9% FLUSH 10 ML IV ×3 (09:47→20:47)
--- NOTE | 2024-08-25 10:21 | P.PN_ITS ---
Subjective Subjective Date Patient Seen: 08/25/24 Time Patient Seen: 10:21 Interval history: Patient has no complaints. Exam Vital Signs (past 8 hours): - 08/25/24 04:00 08/25/24 08:00 08/25/24 09:00 Temperature 97.0 F L Pulse Rate 72 79 Respiratory Rate 18 23 Blood Pressure 163/83 H 159/94 H Pulse Oximetry 94 96 Oxygen Delivery Method Room Air Oxygen Flow Rate 0 0 Oxygen Delivery Method Room Air Oxygen Flow Rate 0 Narrative Exam Narrative: Abdomen is soft, nontender, with active bowel sounds. Objective Labs 08/25/24 04:50 08/25/24 04:40 Labs: Laboratory Results - last 24 hr 08/24/24 08/24/24 08/25/24 04:20 17:05 04:40 WBC 7.9 RBC 4.41 Hgb 9.1 L Hct 29.9 L MCV 67.8 L MCH 20.6 L MCHC 30.4 RDW 33.4 H Plt Count 341 Neut % (Auto) 77.8 H Lymph % (Auto) 9.2 L [place] % (Auto) 9.2 Eos % (Auto) 2.8 Baso % (Auto) 1.0 Neut # (Auto) 6100 Lymph # (Auto) 700 L [place] # (Auto) 700 Eos # (Auto) 200 Baso # (Auto) 100 RBC Morphology See below Anisocytosis 4+ H Sodium 137 Potassium 3.7 Chloride 102 Carbon Dioxide 29 BUN 24 H Creatinine 1.15 H Estimated GFR 46 L BUN/Creatinine Ratio 20.9 Glucose 79 Calcium 8.4 Magnesium 1.8 Iron 24 L TIBC 461 % Saturation 5 L Transferrin 374 Total Bilirubin 1.6 H AST 20 ALT 11 Alkaline Phosphatase 77 Total Protein 6.0 L Albumin 3.3 L Globulin 2.7 Albumin/Globulin Ratio 1.2 Vitamin B12 233 L Folate 5.2 08/25/24 04:50 WBC 6.6 RBC 4.45 Hgb 9.2 L Hct 30.2 L MCV 67.8 L MCH 20.6 L MCHC 30.4 RDW 33.5 H Plt Count 324 Neut % (Auto) Lymph % (Auto) [place] % (Auto) Eos % (Auto) Baso % (Auto) Neut # (Auto) Lymph # (Auto) [place] # (Auto) Eos # (Auto) Baso # (Auto) RBC Morphology Anisocytosis Sodium Potassium Chloride Carbon Dioxide BUN Creatinine Estimated GFR BUN/Creatinine Ratio Glucose Calcium Magnesium Iron TIBC % Saturation Transferrin Total Bilirubin AST ALT Alkaline Phosphatase Total Protein Albumin Globulin Albumin/Globulin Ratio Vitamin B12 Folate [facility] Social History household members: none Smoking Status: Unknown if ever smoked Assessment & Plan Assessment and plan (1) Pleural effusion: Status: Acute (2) Colon stricture: Status: Acute (3) Anemia: Status: Acute Plan Plan a colonoscopy for tomorrow. Indications, planned procedure, and inherent risks were explained to the patient. She appears to understand and agrees to proceed as outlined. We will order a bowel prep for today. Time-Based Coding :: [TOTAL MINUTES] spent with patient and on the chart (including review of chart, obtaining history, exam, reviewing outside data, placing orders, documenting exam and treatment plan, and counseling patient) on [DATE]. PROFEE Demand Planning Analyst Document charge(s): Yes
--- NOTE | 2024-08-25 11:07 | P.PN_ITS ---
Subjective Subjective Date Patient Seen: 08/25/24 Time Patient Seen: 11:08 Interval history: Called to see patient as she was having a bowel movement and some tissue popped out from her anus. it has been bleeding. Exam Vital Signs (past 8 hours): - 08/25/24 04:00 08/25/24 08:00 08/25/24 09:00 Temperature 97.0 F L Pulse Rate 72 79 Respiratory Rate 18 23 Blood Pressure 163/83 H 159/94 H Pulse Oximetry 94 96 Oxygen Delivery Method Room Air Oxygen Flow Rate 0 0 Oxygen Delivery Method Room Air Oxygen Flow Rate 0 Narrative Exam Narrative: There is a golf ball size mass that was extruding from the anus and appears to be arising from the right lateral portion of the anus. The mass is very soft and friable. The mass easily bleeds. While manipulating the mass in attempt to reduce it that small portion fell off that we will send off to pathology. Objective Labs 08/25/24 04:50 08/25/24 04:40 Labs: Laboratory Results - last 24 hr 08/24/24 08/24/24 08/25/24 04:20 17:05 04:40 WBC 7.9 RBC 4.41 Hgb 9.1 L Hct 29.9 L MCV 67.8 L MCH 20.6 L MCHC 30.4 RDW 33.4 H Plt Count 341 Neut % (Auto) 77.8 H Lymph % (Auto) 9.2 L [place] % (Auto) 9.2 Eos % (Auto) 2.8 Baso % (Auto) 1.0 Neut # (Auto) 6100 Lymph # (Auto) 700 L [place] # (Auto) 700 Eos # (Auto) 200 Baso # (Auto) 100 RBC Morphology See below Anisocytosis 4+ H Sodium 137 Potassium 3.7 Chloride 102 Carbon Dioxide 29 BUN 24 H Creatinine 1.15 H Estimated GFR 46 L BUN/Creatinine Ratio 20.9 Glucose 79 Calcium 8.4 Magnesium 1.8 Iron 24 L TIBC 461 % Saturation 5 L Transferrin 374 Total Bilirubin 1.6 H AST 20 ALT 11 Alkaline Phosphatase 77 Total Protein 6.0 L Albumin 3.3 L Globulin 2.7 Albumin/Globulin Ratio 1.2 Vitamin B12 233 L Folate 5.2 08/25/24 04:50 WBC 6.6 RBC 4.45 Hgb 9.2 L Hct 30.2 L MCV 67.8 L MCH 20.6 L MCHC 30.4 RDW 33.5 H Plt Count 324 Neut % (Auto) Lymph % (Auto) [place] % (Auto) Eos % (Auto) Baso % (Auto) Neut # (Auto) Lymph # (Auto) [place] # (Auto) Eos # (Auto) Baso # (Auto) RBC Morphology Anisocytosis Sodium Potassium Chloride Carbon Dioxide BUN Creatinine Estimated GFR BUN/Creatinine Ratio Glucose Calcium Magnesium Iron TIBC % Saturation Transferrin Total Bilirubin AST ALT Alkaline Phosphatase Total Protein Albumin Globulin Albumin/Globulin Ratio Vitamin B12 Folate PFSH Social History household members: none Smoking Status: Unknown if ever smoked Assessment & Plan Assessment and plan (1) Rectal mass: Status: Acute (2) Pleural effusion: Status: Acute (3) Colon stricture: Status: Acute (4) Anemia: Status: Acute Plan The mass was soft and friable and I believe is most consistent with a villous adenoma. We will proceed with a bowel prep and colonoscopy. Time-Based Coding :: [TOTAL MINUTES] spent with patient and on the chart (including review of chart, obtaining history, exam, reviewing outside data, placing orders, documenting exam and treatment plan, and counseling patient) on [DATE]. PROFEE Engineer Automated Equipment Document charge(s): Yes
--- NOTE | 2024-08-25 11:13 | PATH_ITS ---
[facility] Accession Number: [id number] No. of containers..01 Tissue . 01 Material submitted: . rectum - RECTAL MASS . 01 Diagnosis: RECTAL MASS: Fragment of tubulovillous adenoma, with adherent mucus. No high-grade dysplasia or malignancy identified. See comment. . Specimen Comments: Per the clinical record, this is a small portion of a larger lesion. The possibility of an unsampled higher-grade lesion is not ruled out. Clinical correlation is recommended to ensure that the lesion is adequately sampled and entirely removed. [facility] 08/27/2024 1242 Local . 01 Comment: Attempts were made on 08/27/[address] Ledbetter to contact Dr. Donovan with these results. Additional communication was made with staff in the office of Dr. Neal on 08/27/2024 at 1340. . 01 Electronically signed: . Navneet Ledbetter MD, Pathologist NPI- [id number] . 01 Gross description: . Received fresh and subsquently placed in formalin per Dr. Ledbetter with two identifiers and rectal mass, is a pink-red friable soft tissue fragment 1.5 x 0.7 x 0.6 cm. Sectioned and submitted entirely in cassette A1. ([id number]) /WILIAN 08/27/2024 1240 Local . 01 Pathologist provided ICD-10: D12.8 . 01 CPT . 241198 Performed at: [address] [id number] MD Navneet Ledbetetr MD Phone: [phone]
--- NOTE | 2024-08-25 11:31 | PT.IIE ---
Current Diagnoses Anemia, unspecified (08/22/24) Pleural effusion, not elsewhere classified (08/22/24) Other intestinal obstruction unspecified as to partial versus complete obstruction (08/22/24) Other specified diseases of anus and rectum (08/22/24) Surgery Performed Operation Date: 08/26/24 12:45 <No data on this case meets the specified criteria> Physical Therapy Inpatient Evaluation/Re-Eval M1 PT/OT-IP Prior Functional Status Start: 08/25/24 11:22 Freq: NEEDED Status: Active Protocol: Document 08/25/24 10:58 MB (Rec: 08/25/24 11:31 MB Desktop) Medical Review Prior Functional Status Medical History Yes Reviewed Diet/Fluid Regular Consistency Communication WNLs Mobility and Gait Mod I with neighbor's RW Activities of Daily Pt has neighbor nearby when she does bathing and Living and IADL's dressing. She has been ordering groceries at the [employer] and picking them up, she has been driving. Her daughter lives [facility] and pt is in [place] . Social History Household Members none Living Arrangements House Number of Stairs To No steps to enter Enter/Railing? Home Environment Standard Height Toilet,Tub/Shower Home Equipment Front Wheel Walker,Shower Seat without Backrest,Grab Bars In Shower Employment Status Retired Additional Social Pt has been sleeping in her recliner because she cannot History Comment breathe well when flat, the hospital bed has been helpful M2 PT-IP Current Condition Start: 08/25/24 11:22 Freq: NEEDED Status: Active Protocol: Document 08/25/24 10:58 MB (Rec: 08/25/24 11:31 MB Desktop) Physical Therapy Current Condition Current Condition Evaluation Date 08/25/24 Treatment Diagnosis Anemia, rectal mass, ? CA M3 PT-IP Subjective Start: 08/25/24 11:22 Freq: NEEDED Status: Active Protocol: Document 08/25/24 10:58 MB (Rec: 08/25/24 11:31 MB Desktop) Subjective Physical Therapy Visit Type Type Initial Evaluation Visit Start Time 10:58 Visit Stop Time 11:15 Number of BIOLOGICAL LAB TECHNICIAN Visits 0 Physical Therapy Visit Comments Patient Comments Pt is tired but agreeable to PT. Therapy Pain Assessment Pain When Pain Assessed At Rest Pain Present Pain Present Denied Pain M4 PT-IP Mobility and Gait Start: 08/25/24 11:22 Freq: NEEDED Status: Active Protocol: Document 08/25/24 10:58 MB (Rec: 08/25/24 11:31 MB Desktop) PT-Bed Mobility Assessment Supine to Sit Supine to Sit Independent Sit to Supine Sit to Supine Independent Scooting Scooting to Edge of Independent Bed Scooting Up and Down Independent in Bed PT-Transfer Assessment Sit to and From Stand Sit to and from Independent,Standby Assistance Stand Equipment Transfer Assistive Front Wheeled Walker Device Orthotic/Prosthetic No Devices or Brace: Transfers Transfer Destination Bed Transfer Technique Ambulation Transfer Ability Level of Assist Independent,Standby Assistance Gait Assessment Gait Gait Assistance Independent,Standby Assistance Required: Distance (Feet) 80 Assistive Devices Assistive Device Front Wheeled Walker Factors Limiting Gait Function Factors Limiting Decreased Activity Tolerance Gait Function Comments Gait Comments NUNEZ and 80' in the room, pt has been using her neighbor 's RW and home and she cannot state if she wants a new RW for home or not PT-Balance Assessment Sitting Balance and Reactions Static Sitting Normal Balance Ability Dynamic Sitting Normal Balance Ability Standing Balance and Reactions Static Standing Normal Balance Ability Dynamic Standing Good Balance Ability Device Used RW M5 PT-IP Objective Assessments Start: 08/25/24 11:22 Freq: NEEDED Status: Active Protocol: Document 08/25/24 10:58 MB (Rec: 08/25/24 11:31 MB Desktop) Orientation Orientation/Cognition Level of Alertness Alert Orientation Name,Age,Birthday,Month,Date,Year,Day of Week,Place, Situation Language Function No Deficits Noted Ability Safety Awareness Understands Safety Issues Memory Description No Deficits Noted Gross Range of Motion Upper Extremity ROM Assessment Within Functional Limits Lower Extremity ROM Assessment Within Functional Limits Impairments B LE edema Strength Upper Extremity Strength Assessment Within Functional Limits Lower Extremity Strength Assessment Within Functional Limits Coordination Assessment Assessment Coordination NT Comments Sensation Assessment Comments Sensation Comments NT M7 PT-IP Assessment and Plan Start: 08/25/24 11:22 Freq: NEEDED Status: Active Protocol: Document 08/25/24 10:58 MB (Rec: 08/25/24 11:31 MB Desktop) PT Summary Assessment and Plan Potential Rehabilitation Poor Potential Status of Condition Evolving at Evaluation Summary Assessment Summary Pt is an 89 y/o female presenting with LE edema, NUNEZ, anemia, rectal mass and ? CA. Pt lives alone and has neighbor superv for bathing and dressing. Pt lives in [place] and her daughter lives [facility]. Pt has been ordering groceries and sleeping in recliner d/t trouble breathing. Pt is I with bed mobility, transfers , and gait in room with RW. Upon PT arrival, pt being evaluate for rectal mass. Pt states, I don't know what I want, when PT asks her about a RW for home and what she is thinking about as far as assistance at d/c. Pt does not have skilled PT needs at this time. Will d/c PT. Recommend up with superv and RW with nsg staff. Frequency of Treatment Frequency Of Discharge Treatment Recommendations To Nursing Amount of Assist Standby Assistance Needed Discharge Recommendations PT Discharge Home with 28/08 Assist Available Recommendations Transportation Needs Private Vehicle at Discharge - PT assist x1
[2024-08-25] MEDS: PEG3350/SOD SULF,BICARB,CL/KCL 4,000 ML SOLUTION 4000 ML PO (12:09)
[2024-08-25] MEDS: MAGNESIUM CITRATE 300 ML SOLUTION 150 ML PO (16:08)
[2024-08-25] MEDS: BISACODYL 5 MG TABLET 20 MG PO (16:08)
[2024-08-25 17:19] LABS: Add Manual Diff / Slide Review NO; Hematocrit 31.6 % (36-46); Hemoglobin 9.7 g/dL (12.0-16.0); Lymphocytes Absolute Auto 900 /uL (1100-4500); Mean Corpuscular HGB Conc 30.7 % (30-36); Mean Corpuscular Hemoglobin 21.0 PG (26-34); Mean Corpuscular Volume 68.4 fL (80-100); Platelet Count 364 X10^3/uL (150-400)
[2024-08-25 17:48] LABS: Anisocytosis 4+
[2024-08-26] VITALS (52 sets, daily range): BP systolic 93–164; BP diastolic 50–90; PULSE 59–97; RESP 14–46; TEMP 36.2–36.8; O2SAT 83–97; BMI 28.0
--- NOTE | 2024-08-26 | PATH_ITS ---
[facility] Accession Number: [id number] No. of containers..03 Tissue . 01 Material submitted: . PART A: colon - COLON, RIGHT MASS PART B: colon - SIGMOID POLYP PART C: rectum - RECTAL MASS . 01 Diagnosis: A. RIGHT COLON MASS: Colonic mucosa with no significant diagnostic alterations. See comment. . B. SIGMOID COLON POLYP: Tubular adenoma. . C. 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 Tumor size: 0.9 x 0.7 cm in maximum linear dimension on glass slide. Tumor extension: Tumor invades submucosa. No lymphovascular or perineural invasion identified. Invasive adenocarcinoma is present within 1 mm from cauterized tissue edge. See comment. [facility] 09/01/2024 1151 Local . 01 Comment: A. Clinical impression of mass is noted. There is no evidence of neoplasia on the initial levels. Deeper sections will be performed and a final diagnosis will be reported in an addendum. . C. The invasive glands are widely distributed within the body of the polyp. While no definite adenocarcinoma is present at the cauterized tissue edge, dysplastic glands are present at cauterized tissue edge. In addition, the sample is received in fragments precluding definite evaluation of the margin. Clinical correlation is recommended to ensure the lesion is completely excised. . Immunohistochemical staining for markers of microsatellite instability (MSI) will be performed, and the results will be reported as an addendum. . As part of routine quality assurance monitor body, selected slides from this case was also reviewed by Dr. Navneet Ledbetter, who agrees with the interpretation of invasive adenocarcinom. . Findings were called to Dr. Romero on 09/01/[address] Negron. . 01 Electronically signed: . Myriam Negron MD, Pathologist NPI- [id number] . 01 Gross description: . A. Received in formalin with two identifiers and right colon mass biopsies, are three patrick soft tissue fragments, 0.2 to 0.4 cm in greatest dimension, submitted in A1. B. Received in formalin with two identifiers and sigmoid polyp, is a single patrick soft tissue fragment, 0.7 x 0.5 x 0.3 cm. Bisected and submitted entirely in B1. C. Received in formalin with two identifiers and rectal mass, are multiple patrick friable soft tissue fragments aggregating to 6.9 x 5.0 x 2.7 cm. The possible stalk margin is inked blue. The fragments are serially sectioned and submitted entirely in C1-C15. ([id number]) /MRV 08/29/2024 1815 Local . 01 Pathologist provided ICD-10: D12.5, C20 . 01 CPT . 147486, [id number], [id number] Specimen Comment: A courtesy copy of this report has been sent to [facility] Pathology Performed at: [address] [id number] MD Navneet Ledbetter MD Phone: [phone]
[2024-08-26] MEDS: FUROSEMIDE 20 MG/2 ML VIAL IV (03:05)
[2024-08-26] MEDS: SODIUM CHLORIDE 0.9% FLUSH 10 ML IV (09:29)
--- NOTE | 2024-08-26 09:41 | PM.PN.1 ---
Subjective Subjective Interval history: S: She was doing well today, less leg edema. She did her prep for colonoscopy and denies much in terms of rectal bleeding. This will happen at noon today. Exam Vital Signs (past 8 hours): - 08/26/24 04:00 08/26/24 08:59 Temperature 98.3 F Pulse Rate 94 H 83 Respiratory Rate 18 23 Blood Pressure 128/79 122/87 Pulse Oximetry 94 96 Oxygen Flow Rate 0 0 Oxygen Delivery Method Room Air Oxygen Flow Rate 0 Narrative Exam Narrative: NAD, alert and oriented. Fluent speech. Lungs are clear, normal rate and effort. Heart is regular, no murmur gallop or rub. Abdomen is soft, non distended. Extremities with 2+ edema to 3+ edema, improved. Objective Imaging Echo: Radiologist's impression: The ejection fraction is estimated to be 45-50%. Diastolic function is indeterminate. The left atrium is moderately dilated. The right ventricle is mildly dilated. The right ventricular systolic function is normal. The right atrium is mildly dilated. There is mild tricuspid regurgitation. Pulmonary artery pressures cannot be estimated because of the lack of a measurable TR jet velocity but the IVC suggests a CVP of around 8 mmHg. There is a small left-sided pleural effusion. Labs 08/25/24 17:13 08/25/24 04:40 Labs: Laboratory Results - last 24 hr 08/25/24 17:13 WBC 7.4 RBC 4.62 Hgb 9.7 L Hct 31.6 L MCV 68.4 L MCH 21.0 L MCHC 30.7 RDW 33.7 H Plt Count 364 Neut % (Auto) 74.9 Lymph % (Auto) 11.5 L Fleming % (Auto) 9.4 Eos % (Auto) 3.1 Baso % (Auto) 1.1 Neut # (Auto) 5600 Lymph # (Auto) 900 L Fleming # (Auto) 700 Eos # (Auto) 200 Baso # (Auto) 100 RBC Morphology See below Anisocytosis 4+ H [facility] Social History household members: none Smoking Status: Unknown if ever smoked Assessment & Plan Assessment & Plan narrative: 1. Severe anemia, present on admission and active. 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 Improved after transfusion. 2. Volume overload with evidence of congestive heart failure with anasarca and pleural effusions, EF on Echo of 45-50%,present on admission and improving. 3. CARYN, present on admission and resolved. 4. Abnormal CT of the abdomen with concern for right sided colonic mass and possible metastatic findings. 5. [employer] perspective on health care interventions. 6. Prolapse of possible tubular adenoma with II through the rectum today, new and active. Plan: -Continue Lasix 20 mg IV q.8 hours -colonoscopy today. -do not resuscitate Time-Based Coding :: [TOTAL MINUTES] spent with patient and on the chart (including review of chart, obtaining history, exam, reviewing outside data, placing orders, documenting exam and treatment plan, and counseling patient) on [DATE].
--- NOTE | 2024-08-26 12:41 | PM.PREOP ---
Pre-operative Note Interval Note History & Physical reviewed/Exam performed by Physician: Yes Changes to H&P: No
[2024-08-26] MEDS: LACTATED RINGERS 1,000 ML 42 ML IV (12:56)
--- NOTE | 2024-08-26 14:37 | PM.OP.1 ---
Operative Date/Time/Diagnoses Date of procedure: 08/26/24 Time of procedure: 13:27 Pre-op diagnosis: 1) anemia 2) colonic mass Post-op diagnosis: same (Rectal polyp) Procedure & Clinicians Procedure: Colonoscopy with polypectomy Same procedure(s) as scheduled: Yes Indications: The patient is an 89-year-old female who recently presented with worsening dyspnea on exertion. She had a cardiac workup as part of that workup had a blood count which showed a hemoglobin of 4. Further workup included CT scan of the abdomen and pelvis which revealed a mass in the right colon. There are some hypodense areas in the liver which need to be further clarified. She received 4 units of blood with a follow-up hemoglobin of 9. Surgeon: ED* *Temp Click Yes if Unassisted: Yes Anesthesia Type: Sedation Operative Notes Findings: In about mid right colon patient had a exophytic mass that encompasses about 50% of the colonic circumference. Patient had a 4 x 4 mm sessile polyp in the sigmoid colon. Patient also had a rather large lobulated pedunculated polyp in the rectum that cumulatively measured 4-1/2 x 4-1/2 cm. Also noted were numerous diverticula within the sigmoid colon. Patient is a very good bowel prep with a score of 9 based on the [place] bowel preparation scale. Specimen(s): other (1) Prosthetic devices, grafts, tissues, transplants, or devices: 1) biopsies of the right colon mass 2) sigmoid polyp 3) rectal polyp Applied: none Estimated Blood Loss (mL): 1 Procedure in detail: After appropriate patient identification, the patient was moved to the endoscopy suite. Patient was then moved to a left lateral decubitus position. Upon completion of IV sedation, a digital rectal examination was accomplished with the finding a polypoid lesion in the rectum. The scope was then inserted through the anus and with some careful manipulation the scope was moved to about mid right colon where the exophytic mass was encountered. Multiple biopsies were taken using cold biopsy forceps. Scope was then removed in a slow fashion while the colonic mucosa was circumferentially inspected. In the sigmoid colon there was about a 4 x 4 mm sessile polyp which was removed using a hot snare. Noted in the sigmoid colon where numerous diverticula. Upon entering the rectum, a rather large pedunculated polyp was identified with multiple lobules. The polyp was removed piecemeal using a hot snare, until it completely removed. The cumulative measurement was about a 4-1/2 x 4-1/2 cm. The site was tattooed. The scope was withdrawn and the patient was transferred to the recovery unit in good condition having sustained less than 1 cc blood loss. Complications: none Post-operative Condition: stable Disposition: PACU
[2024-08-26] MEDS: FUROSEMIDE 40 MG/4 ML VIAL IV (15:41)
[2024-08-26] MEDS: HEPARIN 5,000 UNIT/ML VIAL 5000 UNIT SUBCUT (21:19)
[2024-08-27 05:10] VITALS: BP 176/89; PULSE 82; RESP 18; O2SAT 84
[2024-08-27 08:00] VITALS: BP 143/73; PULSE 88; RESP 23; O2SAT 97
[2024-08-27] MEDS: FUROSEMIDE 40 MG/4 ML VIAL IV (08:22)
[2024-08-27] MEDS: HEPARIN 5,000 UNIT/ML VIAL 5000 UNIT SUBCUT (08:22)
--- NOTE | 2024-08-27 11:31 | PM.DS.1 ---
History of Present Illness History of Present Illness Chief complaint: SOB, edema both legs , cough Narrative: She is an 89-year-old female who lives locally, and independently. She is seen with her daughter. She was not seen a doctor since 24/01. She presents because of progressive dyspnea with exertion. Over the past several months she was had progressive gross leg edema and dyspnea on exertion. She denies orthopnea but has had a pronounced chronic cough. No fevers, chills, or chest pain. She denies a known history of heart problems or heart attacks as well as heart failure. In the emergency department she was found to be grossly anemic with a hemoglobin of 4.4, and have anasarca as well as a CT of the abdomen revealing a possible colon mass. She was unsure how much medical care she wants to have going forward, but she was okay with a blood transfusion and preliminary evaluation with echo. She is do not resuscitate in his quite firm on this. Discharge Providers Provider Date of admission: 08/22/24 17:06 Discharge Date: 08/27/24 Consults: 08/22/24 18:13 Consult to Physical Therapy Evaluate & Treat Comment: Physician Instructions: Evaluate and Treat 08/24/24 09:20 Consult to General Surgery Routine Comment: Consulting Provider: Raciel Donovan Reason for consultation: Right Colon Mass Has provider been notified: Yes Discharge provider: Fadi Mckeon MD Summary Hospital Course Discharge Diagnosis: 1. Severe chronic blood loss anemia, present on admission and improved. 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 Improved after transfusion. 2. Volume overload with evidence of acute systolic heart failure with anasarca and pleural effusions, EF on Echo of 45-50%,present on admission and improving. 3. CARYN, present on admission and resolved. 4. Abnormal CT of the abdomen with concern for right sided colonic mass and possible metastatic findings. 5. [employer] perspective on health care interventions. 6. Prolapse of possible tubular adenoma with II through the rectum today, new and active. Hospital Course: She presented with a profound anemia. She was transferred she would anasarca with gross edema of both legs. An echo revealed systolic function with an EF of 45-50%. She improved with diuresis. She maintained a stable hemoglobin after transfusion. Initial imaging with CT scan indicated a right-sided colonic mass. She also underwent a colonoscopy on August 26 with findings of mass which was biopsied. She also had a prolapse of a possible tubular adenoma on the . This was removed during her colonoscopy with biopsies pending. In the day of discharge she was instructed to take cardiac medications for her systolic dysfunction including diuretics. She was a follow up with General surgery in 1 week's time to review her pathology. Imaging was concerning for the possibility of colon cancer with metastatic disease. Status at Discharge Cognitive/behavioral status at discharge: oriented Functional status at discharge: independent ambulation Overall status at discharge: patient is progressing back to baseline Time Spent with Patient Time spent: Greater than 30 minutes Exam Vital Signs (past 8 hours): - 08/27/24 05:10 08/27/24 05:10 08/27/24 07:00 Pulse Rate 82 Respiratory Rate 18 Blood Pressure 176/89 H Pulse Oximetry 84 L Oxygen Delivery Method Room Air 08/27/24 08:00 Pulse Rate 88 Respiratory Rate 23 Blood Pressure 143/73 H Pulse Oximetry 97 Oxygen Delivery Method Oxygen Delivery Method Room Air Oxygen Flow Rate 0 Narrative Exam Narrative: NAD, alert and oriented. Fluent speech. Lungs are clear, normal rate and effort. Heart is regular, no murmur gallop or rub. Abdomen is soft, non distended. Extremities with 2+ edema. Objective ECG Impression: Intervals [place] Rate: 89 P: 64 IN: 174 QRS: -33 QRSD: 84 T: 140 QT: 342 QTc: 416 Interpretive Statements Normal sinus rhythm Left axis deviation Anteroseptal infarct , age undetermined Imaging Multiple studies:: Radiologist's impression: Echo: The ejection fraction is estimated to be 45-50%. Diastolic function is indeterminate. The left atrium is moderately dilated. The right ventricle is mildly dilated. The right ventricular systolic function is normal. The right atrium is mildly dilated. There is mild tricuspid regurgitation. Pulmonary artery pressures cannot be estimated because of the lack of a measurable TR jet velocity but the IVC suggests a CVP of around 8 mmHg. There is a small left-sided pleural effusion. Chest CTA: No pulmonary embolus. 1.5 cm pulmonary mass lesion superior segment left lower lobe. Bilateral pleural effusions that have been documented to show a subtle degree of pleural thickening and enhancement, exudative. Follow-up thoracentesis for decompression and cytology/bacterial cultures may be warranted. Ovoid 2.6 cm maximal dimension cutaneous/subcutaneous mid chest posterior left paramedian mass warrants clinical correlation. This could represent a metastatic focus but also may simply represent a sebaceous cyst. Abdomen pelvis CT: Bilateral moderate to moderately severe exudative pleural effusions, with adjacent presumed atelectasis. Unexpected finding of a right colonic constricting segment of bowel abnormality worrisome for representing colon carcinoma. The wall of the colon in this area is thickened and the lumen is narrowed. Note is made of 2 separate but adjacent left lateral hepatic segment hypodensities that may represent hemangiomas but should be further assessed with targeted ultrasound electively to assist in determining whether these could represent metastatic foci. Vascular ultrasound: No findings of deep venous thrombosis in either lower extremity. Chest x-ray: Small to moderate-sized subpulmonic pleural effusions with consolidation at each lung base medially, reflecting either pneumonia or atelectasis. Labs 08/25/24 17:13 08/25/24 04:40 Labs: Laboratory Results - last 24 hr 08/22/24 14:49 Smear Path Review [facility] Social History household members: none Smoking Status: Unknown if ever smoked Discharge Assessment & Plan Assessment and Plan Assessment: 1. Severe chronic blood loss anemia, present on admission and improved. 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 Improved after transfusion. 2. Volume overload with evidence of acute systolic heart failure with anasarca and pleural effusions, EF on Echo of 45-50%,present on admission and improving. 3. CARYN, present on admission and resolved. 4. Abnormal CT of the abdomen with concern for right sided colonic mass and possible metastatic findings. 5. [employer] perspective on health care interventions. 6. Prolapse of possible tubular adenoma with II through the rectum today, new and active. Plan of Treatment: Discharge with medications including Lasix, metoprolol, potassium, and furosemide to address her LV dysfunction. Follow up with General surgery in 1 week's time for biopsy results. We will then see which direction she decides to go with her medical care and ongoing engagement of the medical system. She has historically not engaged with the medical system and has not seen a doctor in decades. Discharge Plan Discharge Plan Patient Disposition: Home Provider Discharge Comment: Stable for discharge home with close follow up. Discharge orders & Medications Prescriptions: New furosemide [Lasix] 40 mg tablet 40 mg PO DAILY Qty: 30 3RF potassium chloride 10 mEq capsule, extended release 10 meq PO DAILY Qty: 30 2RF metoprolol succinate 25 mg tablet extended release 24 hr 12.5 mg PO DAILY Qty: 30 3RF lisinopril 2.5 mg tablet 2.5 mg PO DAILY Qty: 30 2RF Diet/Activity/Treatments Activity: As tolerated. Visit Report/Discharge Packet Instructions: DI for Heart Failure, DI for Colon Polypectomy, DI for Diverticulosis Stand Alone Forms: Patient Portal/API
[2024-08-27 12:19] VITALS: TEMP 36.3
--- NOTE | 2024-08-31 10:16 | PM.CN.IH.1 ---
History of Present Illness Consult details Date Patient Seen: 08/31/24 Time Patient Seen: 10:16 Chief complaint: SOB, edema both legs , cough Meds Home Medications and Allergies Home Medications ?Medication ?Instructions ?Recorded ?Confirmed ?Type furosemide 40 mg tablet (Lasix) 40 mg PO DAILY #30 tabs 08/27/24 08/30/24 Rx lisinopril 2.5 mg tablet 2.5 mg PO DAILY #30 tabs 08/27/24 08/30/24 Rx metoprolol succinate 25 mg 12.5 mg (1/2 x 25 mg) PO DAILY #30 08/27/24 08/30/24 Rx tablet,extended release 24 hr tabs potassium chloride 10 mEq 10 meq PO DAILY #30 caps 08/27/24 08/30/24 Rx capsule,extended release Allergies Allergy/AdvReac Type Severity Reaction Status Date / Time No Known Drug Allergies Allergy Verified 09/01/24 13:32 Exam Vital Signs (past 8 hours): Oxygen Delivery Method Room Air Oxygen Flow Rate 0 Objective Labs 08/25/24 17:13 08/25/24 04:40 [facility] Medical History (Updated 09/02/24 @ 07:41 by Raicel Donovan MD) Systolic heart failure Mass of colon Social History household members: none Tobacco & Substance Use Smoking Status: Unknown if ever smoked alcohol intake: never Assessment & Plan Time-Based Coding :: [TOTAL MINUTES] spent with patient and on the chart (including review of chart, obtaining history, exam, reviewing outside data, placing orders, documenting exam and treatment plan, and counseling patient) on [DATE]. PROFEE Charge Codes Inpatient or Observation consultation: [id number]
--- NOTE | 2024-08-31 10:16 | PM.CN.IH.1 ---
History of Present Illness Consult details Date Patient Seen: 08/31/24 Time Patient Seen: 10:18 Chief complaint: SOB, edema both legs , cough Narrative: The patient is an 89-year-old female, with congestive heart failure, who presents with episode of shortness of breath. She is also noting the onset of some crampy abdominal pain and some nausea but no vomiting. She was seen in the emergency department yesterday and was noted to have an elevated BNP at 84. On films, she has moderate size bilateral pleural effusions. She was admitted by the hospitalist. Patient was admitted about 9 days ago with severe anemia as well as congestive heart failure. She was given 4 units of blood and diuresed with improvement in her symptoms. At that admission, she was noted to have a worrisome constricting lesion in her right colon. She underwent a colonoscopy in which she was found to have an exophytic lesion in the right colon just above the cecum. This lesion was biopsied and pathology is still pending. Also noted, was about a 4 mm sessile polyp in the sigmoid colon. She also had about a 4-1/2 cm pedunculated polyp in the rectum that was excised piecemeal. 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 Presently she claims of some intermittent crampy abdominal pain. She describes nausea but no vomiting. Denies bowel movements and passing flatus. CT of the abdomen and pelvis shows partial obstruction of the colon with an enlarged stool-filled cecum. Also noted, is a lesion in her liver that is worrisome for metastasis. Meds Home Medications and Allergies Home Medications ?Medication ?Instructions ?Recorded ?Confirmed ?Type furosemide 40 mg tablet (Lasix) 40 mg PO DAILY #30 tabs 08/27/24 08/30/24 Rx lisinopril 2.5 mg tablet 2.5 mg PO DAILY #30 tabs 08/27/24 08/30/24 Rx metoprolol succinate 25 mg 12.5 mg (1/2 x 25 mg) PO DAILY #30 08/27/24 08/30/24 Rx tablet,extended release 24 hr tabs potassium chloride 10 mEq 10 meq PO DAILY #30 caps 08/27/24 08/30/24 Rx capsule,extended release Allergies Allergy/AdvReac Type Severity Reaction Status Date / Time No Known Drug Allergies Allergy Verified 08/30/24 06:56 Review of Systems Review of Systems ROS: Yes All systems reviewed with the patient and are negative except as otherwise documented Exam Vital Signs (past 8 hours): Oxygen Delivery Method Room Air Oxygen Flow Rate 0 Narrative Exam Narrative: Patient was sleeping when I went in to the room and was easily arousable and alert at the time of my visit. HEENT is within normal limits Neck is supple Chest is clear bilaterally but with intermittent rales in the bases Cardiac reveals a regular rate and rhythm Abdomen is distended, hyper-resonant but nontender. Bowel sounds are hypoactive Extremities reveal full range of motion with minimal edema. Objective Imaging CT scan - abdomen: Radiologist's impression: PROCEDURE: CT ABDOMEN PELVIS W CON INDICATIONS: progressive symptoms TECHNIQUE: After the administration of intravenous contrast, axial sections acquired from the lung bases to the pubic symphysis. Coronal and sagittal reformats were performed. For radiation dose reduction, the following was used: automated exposure control, adjustment of mA and/or kV according to patient size. COMPARISON: [facility], CT, CT ABDOMEN PELVIS W CON, 08/22/2024, 15:34. FINDINGS: Lower Chest: Moderate bibasilar pleural effusions with associated atelectasis greater on the right. ABDOMEN: Liver: Left hepatic hypodense mass lesions measure up to 2.1 cm Gallbladder: No radiopaque gallstones or wall thickening. Biliary ducts: No biliary dilation. Pancreas: No ductal dilation. Spleen: Size is within normal limits. Adrenal Glands: No adrenal nodules. Kidneys and Ureters: No hydronephrosis. No solid mass. No complex renal cystic lesion which requires follow up. Bilateral simple renal cysts Stomach and Bowel: Circumferential mass lesion right mid colon resulting and upstream fecal in fluid retention. Multiple diverticula arise from the sigmoid colon without evidence of diverticulitis. Peritoneum: No abnormal intraperitoneal fluid. No free air. Ventral Wall: No significant ventral hernia. Abdominal Nodes: No retroperitoneal or mesenteric adenopathy by size criteria. Vessels: Aorta and inferior vena cava are normal in size. PELVIS: Pelvic Organs: Unremarkable. Bladder: No bladder wall thickening, accounting for underdistention. Pelvic Nodes: No enlarged lymph nodes. Miscellaneous: No inguinal hernias are seen. Bones: No aggressive osseous abnormality. IMPRESSION: Circumferential colon cancer in the right mid colon results in increasing upstream fluid and fecal retention Left hepatic hypodense mass lesions consistent with metastasis Approved by: Gurinder Bunch M.D. on 08/30/2024 at 9:00 Labs 08/25/24 17:13 08/25/24 04:40 [facility] Medical History (Updated 08/30/24 @ 11:32 by Kristine Eastman MD) Systolic heart failure Mass of colon Social History household members: none Tobacco & Substance Use Smoking Status: Unknown if ever smoked alcohol intake: never Assessment & Plan Assessment and plan (1) Colon obstruction: Status: Acute (2) Acute CHF (congestive heart failure): Qualifiers: Heart failure type: systolic Qualified Code(s): I50.21 - Acute systolic (congestive) heart failure Status: Acute (3) Colon stricture: Status: Acute Plan I spent considerable time discussing her options with her and her daughter. We discussed the possibility of moving onto hospice and went on to discuss the consequences of that decision. We discussed the fact that she which she would perforated bowel and [place] a very uncomfortable . We discussed the possibility of a right hemicolectomy with an ileocolonic anastomosis. I discussed the indications, planned procedure, and inherent risks with the patient. At this juncture, she appears to understand and wishes to proceed. We discussed how her congestive heart failure might play into her postoperative course and the potential for mortality. I will attempt to discuss the patient's consists of heart failure with the hospitalist and see if she is optimized for surgical procedure. Time-Based Coding :: [TOTAL MINUTES] spent with patient and on the chart (including review of chart, obtaining history, exam, reviewing outside data, placing orders, documenting exam and treatment plan, and counseling patient) on [DATE]. PROFEE Charge Codes Inpatient or Observation consultation: [id number]
--- NOTE | 2024-08-31 16:03 | P.PN_ITS ---
Exam Vital Signs (past 8 hours): Oxygen Delivery Method Room Air Oxygen Flow Rate 0 Objective Labs 08/25/24 17:13 08/25/24 04:40 [facility] Medical History (Updated 08/30/24 @ 11:32 by Kristine Eastman MD) Systolic heart failure Mass of colon Social History household members: none Smoking Status: Never smoker alcohol intake: never Assessment & Plan Assessment and plan (1) Colon obstruction: Status: Acute (2) Acute CHF (congestive heart failure): Qualifiers: Heart failure type: systolic Qualified Code(s): I50.21 - Acute systolic (congestive) heart failure Status: Acute (3) Colon stricture: Status: Acute Plan I once again went over the proposed plan as well as alternative to that plan. We discussed expected courses of conservative nonoperative care versus operative care. We discussed the inherent risks of a surgical procedure to include mortality. The patient appears to understand and agrees to proceed as outlined. Time-Based Coding :: [TOTAL MINUTES] spent with patient and on the chart (including review of chart, obtaining history, exam, reviewing outside data, placing orders, documenting exam and treatment plan, and counseling patient) on [DATE]. PROFEE [employer] Document charge(s): Yes
--- NOTE | 2024-09-01 09:51 | P.PN_ITS ---
Subjective Subjective Date Patient Seen: 09/01/24 Time Patient Seen: 09:51 Interval history: Patient is complaining of some intermittent crampy abdominal pain. She denies nausea and vomiting. She has been NPO since yesterday. She has not passed any flatus nor she had a bowel movement. Exam Vital Signs (past 8 hours): Oxygen Delivery Method Room Air Oxygen Flow Rate 0 Narrative Exam Narrative: Lungs are clear to auscultation bilaterally Cardiac reveals a regular rate and rhythm Abdomen is moderately distended, soft, nontender with hypoactive bowel sounds. Objective Labs 08/25/24 17:13 08/25/24 04:40 [facility] Medical History (Updated 08/30/24 @ 11:32 by Kristine Eastman MD) Systolic heart failure Mass of colon Social History household members: none Smoking Status: Never smoker alcohol intake: never Assessment & Plan Assessment and plan (1) Colon obstruction: Status: Acute (2) Acute CHF (congestive heart failure): Qualifiers: Heart failure type: systolic Qualified Code(s): I50.21 - Acute systolic (congestive) heart failure Status: Acute (3) Colon stricture: Status: Acute Plan Plan and exploratory laparotomy with a right hemicolectomy today. Indications, planned procedure, and inherent risks including mortality were explained once again with patient's daughter present. They appeared to understand and agrees to proceed as outlined. Time-Based Coding :: [TOTAL MINUTES] spent with patient and on the chart (including review of chart, obtaining history, exam, reviewing outside data, placing orders, documenting exam and treatment plan, and counseling patient) on [DATE]. [employer] Worker Document charge(s): Yes
--- NOTE | 2024-09-01 16:58 | P.OP_ITS ---
Operative Date/Time/Diagnoses Date of procedure: 09/01/24 Time of procedure: 15:01 Pre-op diagnosis: Colonic obstruction Post-op diagnosis: same Procedure & Clinicians Procedure: Right hemicolectomy with incisional biopsy of hepatic lesion. Same procedure(s) as scheduled: Yes Indications: The patient is a 89-year-old female who presented proximally 2 weeks ago with congestive heart failure and a hemoglobin of 4. She had 4 units of blood transfused and her subsequent hemoglobin was 9. On CT scan, patient had a worrisome lesion of the right colon. She underwent a colonoscopy during that admission was noted to have an exophytic lesion about mid ascending colon. This lesion was biopsied. She re-presented over the weekend with complete obstruction of her colon at this site. She is now undergo a right hemicolectomy. Surgeon: MEHREEN* *Temp Click Yes if Unassisted: Yes Anesthesia Type: General Operative Notes Findings: The patient had a very tight apple-core type lesion about mid ascending colon. The cecum was dilated to about a softball size. Part of the cecal wall was starting to split. There was a nodule on the dome of the liver in the left lobe. Closure Type: primary Specimen(s): other Applied: none Estimated Blood Loss (mL): 20 Blood products transfused: none Procedure in detail: After appropriate patient identification, the patient was placed on the procedure table in supine position upon achievement adequate general anesthesia, bilateral tap blocks were placed by anesthesia. The abdomen was then prepped with ChloraPrep and draped in a sterile manner. Upon completion of the time- out, a periumbilical incision was fashioned using a 10 blade knife. The incision was deepened through dermis subcutaneous tissue the linea alba using Bovie electrocautery. The linea alba and the peritoneum were opened under direct vision using Bovie electrocautery. This incision was extended throughout the length of the skin incision. Upon entering the abdomen there were some ascitic fluid that was aspirated. The dilated cecum was identified and the right colon was mobilized after taking down the lateral peritoneal reflections. The colon was made mobilized from middle colic artery to the small bowel. The middle colic artery was identified and a section for the tract section of colon was identified. A window was made through the mesocolon using curved clamp. A SHARMIN 55 was passed and fired. The proximal margin was identified in the small bowel. A window was fashion through the mesentery using a curved clamp and a GI stapler was passed and fired. The mesocolon was taken down sequentially using LigaSure until we got to the middle colic artery. The middle colic artery was doubly clamped proximally and singly clamped distally and divided. The proximal clamped a 2-0 silk tie was placed. The distal clamp there was a suture ligature of 2-0 silk. The remainder of the mesocolon was then dissected into and the specimen was removed. The transverse colon and the terminal ileum was placed side by side and tacked place using a 3-0 silk suture. Moist laps were placed on either side of the proposed anastomosis. Fluid and solid feces was then pushed distally and a bowel clamp was applied. Succus was pushed proximally and a bowel clamp was placed in the small bowel. An enterotomy and a colotomy were fashion using Bovie electrocautery. SHARMIN stapler was passed and fired thereby creating an functional end to end anastomosis. The resulting enterotomy was reapproximated using a 4-0 undyed Monocryl in a simple running fashion suture mucosa to mucosa, the suture was then brought back upon itself in imbricating the mucosal repair using a horizontal mattress of 4-0 Monocryl. All dirty instruments were taken from the field and the operating team changed gowns and gloves. The resulting mesenteric rent was reapproximated using a 4-0 undyed Monocryl and fashion. The abdomen was copiously irrigated sterile saline. All bowel contents were replaced in their normal anatomic p osition. Attention was then directed to the liver and on the edge of the liver in the left lobe was a small nodule. An excisional biopsy was completed of this nodule using Bovie electrocautery. The resulting open wound was inspected and hemostasis was assured using Bovie electrocautery. The linea alba was reapproximated using 1. PDS and separate any fashion. Skin mac were used to close the skin incision and the procedure was terminated. The patient was transferred to the recovery room in good condition having sustained a proximally 20 cc blood loss. Complications: none
--- NOTE | 2024-09-02 07:38 | P.PN_ITS ---
Subjective Subjective Date Patient Seen: 09/02/24 Time Patient Seen: 07:38 Interval history: The patient is in her 1st postoperative day from a right hemicolectomy secondary to obstructing colon cancer. She had a rough night requiring placement of an NG tube. Her blood pressure has been soft throughout the night requiring boluses. She is presently getting a 500 cc bolus of 5% albumin. She is expressing a desire to move to hospice care. Exam Vital Signs (past 8 hours): Oxygen Delivery Method Room Air Oxygen Flow Rate 0 Narrative Exam Narrative: The patient is alert Lungs are clear to auscultation bilaterally Cardiac reveals a regular rate and rhythm Abdomen is distended, diffusely tender with rare bowel sounds. Dressing is intact Objective Labs 08/25/24 17:13 08/25/24 04:40 [facility] Medical History (Updated 09/02/24 @ 07:41 by Raciel Donovan MD) Systolic heart failure Mass of colon Social History household members: none Smoking Status: Never smoker alcohol intake: never Assessment & Plan Assessment and plan (1) Adenocarcinoma of colon: Status: Acute (2) Colon obstruction: Status: Acute (3) Acute CHF (congestive heart failure): Qualifiers: Heart failure type: systolic Qualified Code(s): I50.21 - Acute systolic (congestive) heart failure Status: Acute (4) Colon stricture: Status: Acute Plan We will discuss patient's desires with the hospitalist. I will also sign out the patient to Dr. Gordon Brown. We will continue with fluid resuscitation until further arrangements on her ultimate disposition are made. Time-Based Coding :: [TOTAL MINUTES] spent with patient and on the chart (including review of chart, obtaining history, exam, reviewing outside data, placing orders, documenting exam and treatment plan, and counseling patient) on [DATE]. 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
== END 2024-08-27 12:56 | disposition home or self-care (01) | DRG 811 ==
LOC: ED 16:34 → AC 17:14 → ICU 08-23 12:39 → AC 08-25 09:28 → ICU 08-25 09:28
PROVIDERS: Family Medicine; Internal Medicine; Surgery Trauma Surgery; Admitting Provider Hospitalist; Emergency Provider Student in an Organized Health Care Education/Training Program; Referring Provider Student in an Organized Health Care Education/Training Program; Visit Provider Hospitalist
PROC: 0DJD8ZZ Inspection of Lower Intestinal Tract, Via Natural or Artificial Opening Endoscopic (ICD-10-PCS; CPT 45378; principal; 2024-08-26 12:45)
DX: D50.0 Iron deficiency anemia secondary to blood loss (chronic) (principal); I50.23 Acute on chronic systolic (congestive) heart failure; N17.9 Acute kidney failure, unspecified; C18.2 Malignant neoplasm of ascending colon; C79.9 Secondary malignant neoplasm of unspecified site; K62.1 Rectal polyp; K62.3 Rectal prolapse; Z65.8 Other specified problems related to psychosocial circumstances; Z66 Do not resuscitate
CPT/HCPCS: 36415; 36430; 71045; 71275; 74177; 80048; 80053; 82607; 82746; 83540; 83550; 83690; 83735; 83880; 84484; 85025; 85027; 85379; 85610; 85730; 86850; 86900; 86901; 93005; 93306; 93970; 97161; 99284; P9016; J1644; J1938; J2704; Q9967

== ENCOUNTER 2024-08-30 06:44 | Inpatient (IN) | payer MEDICARE, OTHER, SELFPAY ==
[2024-08-22 17:13] VITALS: BMI 29.6
--- NOTE | 2024-08-30 06:50 | EKG_ITS ---
[facility] [address] [place] [address] Test Date: 2024-08-30 Pat Name: Leia Nash Department: [facility] Room: Gender: Female Secy: CHUCHO : 1935 Requested By: Order Number: [id number] Reading MD: Fadi Mckeon Measurements Intervals [place] Rate: 69 P: 32 NE: 170 QRS: -39 QRSD: 92 T: -5 QT: 470 QTc: 503 Interpretive Statements Normal sinus rhythm Possible Left atrial enlargement Left axis deviation Incomplete right bundle branch block Minimal voltage criteria for LVH, may be normal variant ( [place] product ) Nonspecific T wave abnormality Prolonged QT Electronically Signed On 09-12-2024 8:12:53 PDT by Fadi Mckeon
--- NOTE | 2024-08-30 06:50 | DI.RAD.S_ITS ---
PROCEDURE: XR CHEST 1V INDICATIONS: chest pain TECHNIQUE: One view of the chest was acquired. COMPARISON: [facility], CR, XR CHEST 1V, 08/22/2024, 14:21. FINDINGS: Surgical changes and devices: None. Lungs and pleura: Bilateral effusions slightly greater on the left. Minimal increased pulmonary vascularity. Mediastinum: Mediastinal contours appear normal. Heart size is enlarged. Bones and chest wall: No suspicious bony lesions. Overlying soft tissues appear unremarkable. IMPRESSION: Effusions with increased vascularity suggestive edema. Overall appearance stable compared to prior exam. Dictated by: Jessie Dozier M.D. on 08/30/2024 at 7:49 Approved by: Jessie Dozier M.D. on 08/30/2024 at 7:50
[2024-08-30 06:56] VITALS: BP 161/70; PULSE 77; RESP 18; TEMP 36.6; O2SAT 94; BMI 26.2
--- NOTE | 2024-08-30 07:37 | ED.GENADULT ---
HPI - General Adult General Chief complaint: Abdominal Pain Stated complaint: SOB, vomiting, stomach pain Time Seen by Provider: 08/30/24 06:49 Source: patient and family Mode of arrival: Wheelchair History of Present Illness HPI narrative: 89-year-old woman discharged from the hospital August 27. No medical care for almost 14 years prior to that event. She was admitted with anasarca and a hemoglobin of 4 with concern for a colon mass. Workup revealed systolic heart failure, pleural effusions, ejection fraction 45-50%. She was transfused for the severe blood loss. She underwent colonoscopy to biopsy the area of concern on the CT scan. Imaging of the time was concerning her colon cancer with metastatic disease. She presents today complaining that she has had episodes where she had to ?remember to breathe?. She does not describe cough or wheezing, just that it was very heavy and she had to make sure that she was taking a big breath. She notes that her edema continues to be improved. She does not describe significant cough but is coughing in the exam room, he is able to speak in full sentences no complaints of pain. No reports of obvious blood loss such as vomiting blood or black stools. She has not noted fevers or chills no other specific complaints Related Data Previous Rx's ?Medication ?Instructions ?Recorded furosemide 40 mg tablet (Lasix) 40 mg PO DAILY #30 tabs 08/27/24 lisinopril 2.5 mg tablet 2.5 mg PO DAILY #30 tabs 08/27/24 metoprolol succinate 25 mg 12.5 mg (1/2 x 25 mg) PO DAILY #30 08/27/24 tablet,extended release 24 hr tabs potassium chloride 10 mEq 10 meq PO DAILY #30 caps 08/27/24 capsule,extended release Allergies Allergy/AdvReac Type Severity Reaction Status Date / Time No Known Drug Allergies Allergy Verified 08/30/24 06:56 Review of Systems Review of Systems Narrative: Pertinent positive and negative findings as per HPI Patient History Medical History (Updated 08/30/24 @ 11:32 by Kristine Eastman MD) Systolic heart failure Mass of colon Social History household members: none Smoking Status: Never smoker Smoking Status: Never smoker Exam Initial Vital Signs Initial Vital Signs: Vital Signs Temperature 97.9 F 08/30/24 06:56 Pulse Rate 77 08/30/24 06:56 Respiratory Rate 18 08/30/24 06:56 Blood Pressure 161/70 H 08/30/24 06:56 Pulse Oximetry 94 08/30/24 06:56 Oxygen Delivery Method Room Air 08/30/24 06:56 General: Older appearing, appears fatigued able to speak in full sentences HEENT: Moist mucous membranes, normal sclera with reactive pupils, Respiratory: Lungs shallow breathing, rhonchi and wheezing throughout the left lobe, bibasilar crackles Cardiac: Regular rate and rhythm no murmurs no bruits Abdomen: Soft, mild distention, mild tenderness in the right lower quadrant without rebound or guarding. No flank pain Skin: Warm and dry, lower extremities with skin sequelae of significant volume decrease recently consistent with most recent hospitalization. Neurologic: Globally weak but otherwise Grossly neurologically intact with no obvious asymmetries or abnormalities Extremities: No trauma, 2+ bilateral pitting edema lower extremities only Psych: Cooperative, Course Orders Ordered: ED Orders 08/30/24 06:50 XR chest 1V Stat EKG-12 Lead Stat 08/30/24 08:42 BNP [NT-proBNP (BNP-Adult 18+)] Stat Complete Blood Count AUTO DIFF Stat Comprehensive Metabolic Panel Stat Lipase Stat Troponin & CK Cardiac Panel Stat 08/30/24 09:15 Urine Culture Stat Urine Microscopic Stat 08/30/24 09:16 CT abdomen pelvis w con Stat 08/30/24 11:48 Consult to Discharge Planning Routine 08/31/24 05:00 Complete Blood Count AUTO DIFF DAILY NT-proBNP (BNP-Adult 18+) DAILY 09/01/24 05:00 Complete Blood Count AUTO DIFF DAILY NT-proBNP (BNP-Adult 18+) DAILY Acetaminophen (Acetaminophen 325 Mg Tablet) 650 mg PO Q6H PRN PRN Reason: Fever/Mild Pain (1-3) Heparin Sodium (Porcine) (Heparin 5,000 Unit/Ml Vial) 5,000 unit SUBCUT BID MICHEL Naloxone HCl (Naloxone 0.4 Mg/Ml Vial) 0.2 mg IV Q2MIN PRN PRN Reason: Opiate Reversal Ondansetron HCl (Ondansetron 4 Mg/2 Ml Inj) 4 mg IV Q8HR PRN PRN Reason: Nausea And Vomiting Discontinued Medications Furosemide (Furosemide 40 Mg/4 Ml Vial) 40 mg IV NOW ONE Stop: 08/30/24 11:03 Last Admin: 08/30/24 11:10 Dose: 40 mg Vital Signs Vital signs: Vital Signs - 8 hr 08/30/24 06:56 Temperature 97.9 F Pulse Rate 77 Respiratory Rate 18 Blood Pressure 161/70 H Pulse Oximetry 94 Oxygen Delivery Method Room Air Medical Decision Making Lab Data 08/30/24 08:42 08/30/24 08:42 Labs: Lab Results 08/30/24 08/30/24 Range/Units 08:42 09:15 WBC 8.0 (4.5-11.0) X10^3/uL RBC 4.31 (4.0-5.2) X10^6/uL Hgb 9.2 L (12.0-16.0) g/dL Hct 29.7 L (36-46) % MCV 68.8 L (80-100) fL MCH 21.4 L (26-34) PG MCHC 31.1 (30-36) % RDW 34.2 H (11.6-14.8) % Plt Count 285 (150-400) X10^3/uL Neut % (Auto) 82.5 H (50-75) % Lymph % (Auto) 7.4 L (25-40) % [place] % (Auto) 7.4 (3-14) % Eos % (Auto) 1.7 L (2-4) % Baso % (Auto) 1.0 (0-2) % Neut # (Auto) 6600 (3039-6676) /uL Lymph # (Auto) 600 L (6836-6486) /uL [place] # (Auto) 600 (0-900) /uL Eos # (Auto) 100 (0-450) /uL Baso # (Auto) 100 (0-100) /uL RBC Morphology See below Hypochromasia 2+ H Basophilic Stippling Anisocytosis 3+ H Microcytosis 2+ H Sodium 135 L (137-145) mmol/L Potassium 4.1 (3.4-5.1) mmol/L Chloride 101 (98-107) mmol/L Carbon Dioxide 28 (22-32) mmol/L BUN 17 (7-17) mg/dL Creatinine 1.11 H (0.52-1.04) mg/dL Estimated GFR 48 L (>60) mL/min BUN/Creatinine Ratio 15.3 (6-22) Glucose 90 (70-99) mg/dL Calcium 8.9 (8.4-10.2) mg/dL Total Bilirubin 1.0 (0.2-1.3) mg/dL AST 30 (14-36) IU/L ALT 20 (<35) IU/L Alkaline Phosphatase 81 (38-126) U/L Total Creatine Kinase 21 L (30-135) U/L Troponin I < 0.012 (0.01-0.034) ng/mL NT-Pro-B Natriuret Pep 8400 H (<450) pg/mL Total Protein 6.1 L (6.3-8.2) g/dL Albumin 3.3 L (3.5-5.0) g/dL Globulin 2.8 (1.7-4.1) g/dL Albumin/Globulin Ratio 1.2 (1.0-2.8) Lipase 127 D (23-300) U/L Urine RBC 0-1/hpf (0-5/HPF) Urine WBC 10-30/hpf H (0-5/HPF) Ur Squamous Epith Cells 1-5 /hpf (0-5/HPF) Urine Bacteria Many (>30) H (None) Ur Culture Indicated? Specimen cultured Micro UA Comment Vol Urine Centrifuged 10ml (spun) Urine Dip Bedside Urine Glucose Negative Bedside Urine Bilirubin - Negative Bedside Urine Ketone - Negative Urine Specific [place] 1.010 Bedside Urine Occult Blood - Negative Bedside Urine pH 7.0 Bedside Urine Protein - Negative Bedside Urine Urobilinogen - Negative Bedside Urine Nitrite - Negative Bedside Urine Leukocytes + 70 Esterase Point of care testing: Urine Dip Bedside Urine Glucose Negative Bedside Urine Bilirubin - Negative Bedside Urine Ketone - Negative Urine Specific [place] 1.010 Bedside Urine Occult Blood - Negative Bedside Urine pH 7.0 Bedside Urine Protein - Negative Bedside Urine Urobilinogen - Negative Bedside Urine Nitrite - Negative Bedside Urine Leukocytes + [address] scan - abdomen/pelvis: Radiologist's Impression: PROCEDURE: CT ABDOMEN PELVIS W CON INDICATIONS: progressive symptoms TECHNIQUE: After the administration of intravenous contrast, axial sections acquired from the lung bases to the pubic symphysis. Coronal and sagittal reformats were performed. For radiation dose reduction, the following was used: automated exposure control, adjustment of mA and/or kV according to patient size. COMPARISON: [facility], CT, CT ABDOMEN PELVIS W CON, 08/22/2024, 15:34. FINDINGS: Lower Chest: Moderate bibasilar pleural effusions with associated atelectasis greater on the right. ABDOMEN: Liver: Left hepatic hypodense mass lesions measure up to 2.1 cm Gallbladder: No radiopaque gallstones or wall thickening. Biliary ducts: No biliary dilation. Pancreas: No ductal dilation. Spleen: Size is within normal limits. Adrenal Glands: No adrenal nodules. Kidneys and Ureters: No hydronephrosis. No solid mass. No complex renal cystic lesion which requires follow up. Bilateral simple renal cysts Stomach and Bowel: Circumferential mass lesion right mid colon resulting and upstream fecal in fluid retention. Multiple diverticula arise from the sigmoid colon without evidence of diverticulitis. Peritoneum: No abnormal intraperitoneal fluid. No free air. Ventral Wall: No significant ventral hernia. Abdominal Nodes: No retroperitoneal or mesenteric adenopathy by size criteria. Vessels: Aorta and inferior vena cava are normal in size. PELVIS: Pelvic Organs: Unremarkable. Bladder: No bladder wall thickening, accounting for underdistention. Pelvic Nodes: No enlarged lymph nodes. Miscellaneous: No inguinal hernias are seen. Bones: No aggressive osseous abnormality. IMPRESSION: Circumferential colon cancer in the right mid colon results in increasing upstream fluid and fecal retention Left hepatic hypodense mass lesions consistent with metastasis Approved by: Gurinder Bunch M.D. on 08/30/2024 at 9:00 MDM Narrative Medical decision making narrative: CC: ?I have to remember to breathe? 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 Chest x-ray from today suggests slightly larger pleural effusion. Differential considered: Continued anemia, worsening heart failure, progressive metastatic disease, pulmonary embolism, left sided pneumonia, developing bowel obstruction secondary to extrinsic colon mass Exam documented above, pertinent findings include: Appears somewhat fatigued she is able to speak in full sentences, rhonchi and wheezing throughout the entire left lung field and bibasilar crackles, 2+ lower extremity edema (significantly improved according to both her and her daughter), minor abdominal discomfort right lower quadrant without acute abdomen findings Lab Test results independently reviewed as above. Pertinent findings: CBC shows anemia seems to be stabilizing with a hemoglobin of 9.2. No leukocytosis Chemistries show creatinine at 1.1. BNP is elevated at 8400, higher than with previous admission Lipase is unremarkable Imaging studies independently reviewed: CT scan today shows Circumferential colon cancer in the right mid colon results in increasing upstream fluid and fecal retention Left hepatic hypodense mass lesions consistent with metastasis On review and compared to scan done on 08/22. She does appear to have increasing obstruction secondary to the cancer with worsening upstream retention. Consultations: Discussion with Dr. Donovan, general surgeon. He is the surgeon who did her colon biopsies. Concern for fairly rapid growth of this mass now with partial obstruction. Congestive heart failure is worse. He agreed with hospitalization for treatment of her heart failure and we will discuss with her options to deal with the presumed fairly rapidly growing metastatic colon cancer now with essential colonic obstruction Treatments: IV Lasix Discussion: 89-year-old woman recently admitted for congestive heart failure today complaining of difficulty breathing consistent with congestive heart failure worse than it was previously. Also has some right lower quadrant pain. She had had a mass that has been appreciated Labs findings and progression of mass to the point of essential obstruction all reviewed with patient and her daughter. Extensive questions and review. We will suggest that we admit her to the hospital to deal with the acute heart failure, worse than with recent prior admission. General surgery will consult as an inpatient to discuss options for treating her presumed colon cancer now with colon obstruction. Patient and her daughter are realistic about options understand that possibility of dying from colon obstruction, eventually bowel perforation and sepsis is an option, presumably with hospice and significant care to avoid pain and discomfort. Surgery that likely would require an ostomy bag with significant high-risk for intraoperative and perioperative morbidity and mortality. They do understand that despite the absence of biopsies returning, this is very likely a colon cancer with metastatic disease to the liver. Care is reviewed with the hospitalist service and patient will be admitted Discharge Plan Departure Patient Disposition: Admitted As Inpatient Clinical Impression: Colon obstruction Acute CHF (congestive heart failure) Qualifiers: Heart failure type: systolic Qualified Code(s): I50.21 - Acute systolic (congestive) heart failure
[2024-08-30 08:54] LABS: Add Manual Diff / Slide Review NO; Hematocrit 29.7 % (36-46); Hemoglobin 9.2 g/dL (12.0-16.0); Lymphocytes Absolute Auto 600 /uL (1100-4500); Mean Corpuscular HGB Conc 31.1 % (30-36); Mean Corpuscular Hemoglobin 21.4 PG (26-34); Mean Corpuscular Volume 68.8 fL (80-100); Platelet Count 285 X10^3/uL (150-400)
[2024-08-30 09:00] LABS: Alanine Aminotransferase 20 IU/L (<35); Albumin 3.3 g/dL (3.5-5.0); Albumin Globulin Ratio 1.2 (1.0-2.8); Alkaline Phosphatase 81 U/L (38-126); Blood Urea Nitrogen 17 mg/dL (7-17); Calcium 8.9 mg/dL (8.4-10.2); Carbon Dioxide 28 mmol/L (22-32); Chloride 101 mmol/L (98-107); Creatine Kinase 21 U/L (30-135); Estimated Glomerular Filt Rate 48 mL/min (>60); Globulin 2.8 g/dL (1.7-4.1); Glucose 90 mg/dL (70-99); HEMOLYSIS < 15 (0-50); Lipase 127 U/L (23-300); Potassium 4.1 mmol/L (3.4-5.1); Sodium 135 mmol/L (137-145); Total Protein 6.1 g/dL (6.3-8.2)
[2024-08-30 09:10] LABS: NT-proBNP (BNP-Adult 18+) 8400 pg/mL (<450)
[2024-08-30 09:12] LABS: Anisocytosis 3+; Troponin I < 0.012 ng/mL (0.01-0.034)
[2024-08-30 09:14] LABS: Hypochromasia 2+
--- NOTE | 2024-08-30 09:16 | DI.CT.S_ITS ---
PROCEDURE: CT ABDOMEN PELVIS W CON INDICATIONS: progressive symptoms TECHNIQUE: After the administration of intravenous contrast, axial sections acquired from the lung bases to the pubic symphysis. Coronal and sagittal reformats were performed. For radiation dose reduction, the following was used: automated exposure control, adjustment of mA and/or kV according to patient size. COMPARISON: [facility], CT, CT ABDOMEN PELVIS W CON, 08/22/2024, 15:34. FINDINGS: Lower Chest: Moderate bibasilar pleural effusions with associated atelectasis greater on the right. ABDOMEN: Liver: Left hepatic hypodense mass lesions measure up to 2.1 cm Gallbladder: No radiopaque gallstones or wall thickening. Biliary ducts: No biliary dilation. Pancreas: No ductal dilation. Spleen: Size is within normal limits. Adrenal Glands: No adrenal nodules. Kidneys and Ureters: No hydronephrosis. No solid mass. No complex renal cystic lesion which requires follow up. Bilateral simple renal cysts Stomach and Bowel: Circumferential mass lesion right mid colon resulting and upstream fecal in fluid retention. Multiple diverticula arise from the sigmoid colon without evidence of diverticulitis. Peritoneum: No abnormal intraperitoneal fluid. No free air. Ventral Wall: No significant ventral hernia. Abdominal Nodes: No retroperitoneal or mesenteric adenopathy by size criteria. Vessels: Aorta and inferior vena cava are normal in size. PELVIS: Pelvic Organs: Unremarkable. Bladder: No bladder wall thickening, accounting for underdistention. Pelvic Nodes: No enlarged lymph nodes. Miscellaneous: No inguinal hernias are seen. Bones: No aggressive osseous abnormality. IMPRESSION: Circumferential colon cancer in the right mid colon results in increasing upstream fluid and fecal retention Left hepatic hypodense mass lesions consistent with metastasis Approved by: Gurinder Bunch M.D. on 08/30/2024 at 9:00
[2024-08-30 09:21] LABS: Microcytosis 2+
--- NOTE | 2024-08-30 09:27 | PC.NURSE ---
Addendum entered by Dora Song CNA 08/30/24 12:15: Correction to wound site. Right Lower Extremity. Original Note: 08/30/2024 @0915 after assisting patient back into the room from the bathroom it was noticed that the patient had a 3x3 foam bandage on her outer left calf dated and initialed on 08/26/24. At patient and family members request I removed the bandage and noticed a dime to quarter sized wound with yellow discharge and redness around the site. 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 RN asked for verbal consent to take a photo of the wound for the patients chart and said she would clean and rebandage the wound and notify the provider.
--- NOTE | 2024-08-30 10:13 | PC.RNWOUND ---
dime-sized round wound on lateral aspect of RLE. Area around wound is pink and warm. Pt denies pain. Wound flushed with NS and new allevyn dressing placed by RN. Pt states that she did not know wound was there until she was dc from hospital and saw dressing. Physician notified.
[2024-08-30 10:35] LABS: Culture Indicated Urine Specimen Cultured
[2024-08-30] MEDS: FUROSEMIDE 40 MG/4 ML VIAL IV (11:10)
[2024-08-30 12:34] VITALS: BP 161/74; PULSE 75; RESP 20; O2SAT 93
[2024-08-30 12:45] VITALS: BP 170/75; PULSE 74; RESP 16; TEMP 36.1; O2SAT 98
[2024-08-30 12:47] VITALS: BMI 26.6
[2024-08-30] MEDS: ONDANSETRON 4 MG/2 ML INJ IV ×2 (16:11→20:19)
--- NOTE | 2024-08-30 19:55 | P.HP_ITS ---
History of Present Illness History of Present Illness Chief complaint: SOB, vomiting, stomach pain Narrative: 89-year-old with recent diagnosis of acute congestive heart failure as well as right colon cancer with hepatic metastasis (pending pathology) who presented to the emergency department with nausea, increasing abdominal pain, and an episode of shortness of breath overnight. Patient was previously admitted last week from August 22 through August 27 with severe anemia and congestive heart failure with anasarca. She also had acute kidney injury. An abnormal CT was noted with concerns for a colonic mass with possible metastatic findings. She was admitted and transfused, initiated on Lasix and an echocardiogram was done. She underwent workup of the colon mass with colonoscopy and biopsy and was transfused a total of 4 units packed red blood cells. Echocardiogram was performed which revealed an LVEF of 45-50%. She was discharged on furosemide 40 mg daily, potassium chloride, metoprolol and lisinopril. She was encouraged to follow up with General surgery in 1 week to obtain biopsy results. 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 She reports she was doing better from a standpoint of her congestive heart failure. She was able to walk to and from the bathroom without difficulty. She did have 1 episode of shortness of breath that began yesterday where she felt she had to ?think to breathe?. She also developed nausea yesterday without vomiting. She notes the nausea persisted this morning. She also developed some abdominal discomfort. She subsequently presented to the emergency department for evaluation. In the emergency department, labs revealed improvement overall with a hemoglobin of 9.2, creatinine 1.11, BNP was elevated at 8400 which was increased from prior value of 7490. Chest x-ray showed effusions with increased vascularity suggesting edema. Stable compared to prior. Abdominal pelvic CT revealed circumferential colon cancer in the right mid: With increasing upstream fluid and fecal retention. There is a left hepatic hypodense mass lesion consistent with metastasis. She was given furosemide 40 mg IV in the emergency department as well as ondansetron 4 mg IV. She was subsequently admitted [facility] Medical History (Updated 08/30/24 @ 11:32 by Kristine Eastman MD) Systolic heart failure Mass of colon Social History household members: family and other Smoking Status: Never smoker alcohol intake: never Meds Home Medications and Allergies Home Medications ?Medication ?Instructions ?Recorded ?Confirmed ?Type furosemide 40 mg tablet (Lasix) 40 mg PO DAILY #30 tab s 08/27/24 08/30/24 Rx lisinopril 2.5 mg tablet 2.5 mg PO DAILY #30 tabs 08/30/24 Rx metoprolol succinate 25 mg 12.5 mg (1/2 x 25 mg) PO DA GOGO #30 08/27/24 08/30/24 Rx tablet,extended release 24 hr tabs potassium chloride 10 mEq 10 meq PO DAILY #30 caps 08/30/24 Rx capsule,extended release Allergies Allergy/AdvReac Type Severity Reaction Status Date / Time No Known Drug Allergies Allergy Verified 08/30/24 06:56 Review of Systems Review of Systems Narrative: All other systems were reviewed negative Exam Vital Signs (past 8 hours): - 08/30/24 12:34 08/30/24 12:45 08/30/24 12:47 Temperature 97.0 F L Pulse Rate 75 74 Respiratory Rate 20 16 Blood Pressure 161/74 H 170/75 H Pulse Oximetry 93 98 Oxygen Delivery Method Room Air Room Air Oxygen Flow Rate 0 Oxygen Delivery Method Room Air Oxygen Flow Rate 0 Narrative Exam Narrative: GEN: Very pleasant elderly female, Alert and oriented x3, no acute distress, pale HEENT: Normocephalic, face symmetric, pupils equal round reactive to light, extraocular movements intact, sclerae anicteric, conjunctiva clear, nares patent, oropharynx reveals an intact soft and hard palate with moist mucous membranes, dentition is fair NECK: Supple, no lymphadenopathy, thyroid without enlargement or nodularity, carotids no bruits CHEST: Respiratory excursions symmetric, coarse but clear to auscultation bilaterally CV: Regular rate and rhythm, no murmurs, rubs, gallops, PMI nondisplaced ABD: Soft, tender to palpation in the right lower quadrant, nondistended, bowel sounds present in all 4 quadrants, no organomegaly or masses appreciated EXTR: Warm, well perfused, no clubbing/cyanosis/trace bilateral lower extremity edema SKIN: Warm and dry, without rash NEURO: Alert and oriented x3, nonfocal PSYCH: Mood and affect is within normal limits, judgment and insight are appropriate Objective Labs 08/30/24 08:42 08/30/24 08:42 Labs: Laboratory Results - last 24 hr 08/30/24 08/30/24 08:42 09:15 WBC 8.0 RBC 4.31 Hgb 9.2 L Hct 29.7 L MCV 68.8 L MCH 21.4 L MCHC 31.1 RDW 34.2 H Plt Count 285 Neut % (Auto) 82.5 H Lymph % (Auto) 7.4 L [place] % (Auto) 7.4 Eos % (Auto) 1.7 L Baso % (Auto) 1.0 Neut # (Auto) 6600 Lymph # (Auto) 600 L [place] # (Auto) 600 Eos # (Auto) 100 Baso # (Auto) 100 RBC Morphology See below Hypochromasia 2+ H Basophilic Stippling Anisocytosis 3+ H Microcytosis 2+ H Sodium 135 L Potassium 4.1 Chloride 101 Carbon Dioxide 28 BUN 17 Creatinine 1.11 H Estimated GFR 48 L BUN/Creatinine Ratio 15.3 Glucose 90 Calcium 8.9 Total Bilirubin 1.0 AST 30 ALT 20 Alkaline Phosphatase 81 Total Creatine Kinase 21 L Troponin I < 0.012 NT-Pro-B Natriuret Pep 8400 H Total Protein 6.1 L Albumin 3.3 L Globulin 2.8 Albumin/Globulin Ratio 1.2 Lipase 127 D Urine RBC 0-1/hpf Urine WBC 10-30/hpf H Ur Squamous Epith Cells 1-5 /hpf Urine Bacteria Many (>30) H Ur Culture Indicated? Specimen cultured Micro UA Comment Vol Urine Centrifuged 10ml (spun) Assessment & Plan Assessment & Plan narrative: 1. Acute congestive heart failure exacerbation Patient was noted to have CHF during her last hospitalization. EF was noted to be 45-50%. She had a moderately dilated left atrium, mildly dilated RV, mildly dilated right atrium and mild tricuspid regurgitation. Suspect her CHF last week was in part due to severe chronic anemia due to chronic blood loss. She notes she was improving since discharge last week. She had been able to walk to the bathroom which she could not do last week. It was not until last night when she felt short of breath with the onset of abdominal pain and nausea. She states she was not short of breath this morning when she came to the ER, but rather it was her abdominal pain and nausea that led to her presentation. She did receive Lasix in the emergency department. Her O2 sats have been stable on room air through the day. Chest x-ray did reveal evidence of ongoing CHF and her BNP remains elevated. I suspect some of her ongoing congestive heart failure secondary to volume expansion from her transfusions. She has not presently symptomatic, but we will continue diuresis. She has expressed interest in pursuing surgical intervention for her near obstructing right colon lesion. Given that, we will plan to work on aggressive diuresis to ensure she is optimized clinically before surgery. 2. Right mid colon circumferential cancer with upstream fluid and fecal retention with liver metastasis We did discuss options inclusive of surgery versus conservative management. She states she would like to proceed with surgery. She met with Dr. Donovan earlier today as well. Given that, she will likely remain in the hospital pending operative intervention. She asked if surgery would be tomorrow and I advised that likely it would not happen until the or depending on OR availability. Plan for now to optimize her congestive heart failure . 3. Chronic blood-loss anemia Hemoglobin is stable at 9.2. It was 9.7 upon discharge on the . 4. 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 Code status DNR Prophylaxis Heparin ordered Disposition Admit to acute care Time-Based Coding :: [TOTAL MINUTES] spent with patient and on the chart (including review of chart, obtaining history, exam, reviewing outside data, placing orders, documenting exam and treatment plan, and counseling patient) on [DATE]. Quality VTE Deep Vein Thrombosis/Pulmonary Embolism Present on Admission: No
[2024-08-30] MEDS: HEPARIN 5,000 UNIT/ML VIAL 5000 UNIT SUBCUT (20:22)
[2024-08-30 21:19] VITALS: BP 140/69; PULSE 94; RESP 19; TEMP 36.3; O2SAT 95
[2024-08-31 00:18] VITALS: O2SAT 96
[2024-08-31] MEDS: ONDANSETRON 4 MG/2 ML INJ IV ×3 (03:31→17:28)
[2024-08-31 05:00] LABS: Add Manual Diff / Slide Review NO; Hematocrit 29.3 % (36-46); Hemoglobin 9.1 g/dL (12.0-16.0); Lymphocytes Absolute Auto 600 /uL (1100-4500); Mean Corpuscular HGB Conc 30.9 % (30-36); Mean Corpuscular Hemoglobin 21.4 PG (26-34); Mean Corpuscular Volume 69.2 fL (80-100); Platelet Count 284 X10^3/uL (150-400)
[2024-08-31 05:22] LABS: Blood Urea Nitrogen 19 mg/dL (7-17); Calcium 8.8 mg/dL (8.4-10.2); Carbon Dioxide 31 mmol/L (22-32); Chloride 99 mmol/L (98-107); Estimated Glomerular Filt Rate 41 mL/min (>60); Glucose 91 mg/dL (70-99); HEMOLYSIS < 15 (0-50); Potassium 4.2 mmol/L (3.4-5.1); Sodium 134 mmol/L (137-145)
[2024-08-31 05:52] LABS: Anisocytosis 3+; Hypochromasia 2+; Microcytosis 2+
[2024-08-31 08:00] VITALS: BP 156/73; PULSE 82; RESP 17; TEMP 35.9; O2SAT 89
[2024-08-31] MEDS: HEPARIN 5,000 UNIT/ML VIAL 5000 UNIT SUBCUT ×2 (08:27→20:10)
[2024-08-31] MEDS: FUROSEMIDE 40 MG/4 ML VIAL IV ×3 (08:27→20:10)
--- NOTE | 2024-08-31 08:53 | CM.DANOTE ---
Patient is an 89 yo female, resident of [place], Readmit on 08/30/24 for n/v with CHF exac and colon mass with fluid and fecal retension. Pt recently admitted 08/22-08/27/24 for new colon mass with colonoscopy and biopsy taken (pathology still pending but anticipate metastatic) and was able to d/c home with outpt f/u. Per Surgeon, pt has elected to have surgery to remove her colon mass but needs CHF stabilized first before the OR. 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 Patient A+Ox4, Daughter is supportive and assists as needed and lives locally and is self employed and works from home so available to stay with pt and assist at d/c. Pt confirms that she recently discharged home via Dtr POV after recent admission and felt alright the first couple days and then developed the n/v. Pt ambulates independently and currently on O2 but no home O2 at baseline. Pt confirms she has elected to pursue surgery on her colon mass and is hopeful for d/c home at discharge with Dtr to stay with her. Pt denies any hx of HH or SNF. Plan: SW to follow closely post surgical intervention to determine any discharge planning needs and confirm safe plan of home with supportive Dtr to stay and assist. HOSSEIN [place] Discharge Planning/Care Management CM Discharge Assessment Start: 08/30/24 12:47 Freq: Status: Active Protocol: Document 08/31/24 08:50 BF (Rec: 08/31/24 08:53 BF [id number]) Discharge Planning Assessment Assigned Discharge HOSSEIN [place] [employer] DPOA/Assigned Dtr [facility] Name Contact Information [phone] Advance Directives? No Advance Directives No on File History Provided By Patient,Family Member,Medical Record Has Patient been Yes admitted in last 30 days? Comment Readmit from admission 08/22-08/27 and discharged home Prior Living House Arrangements Household Members none Type of Drives own vehicle transporation used prior to admit Independent with ADL Yes 's Is patient alert and Yes oriented? Caregiver for No Another Comment Pending progress post surg Barriers to No Discharge Discharge Plan Home [facility] Home Health Nurse Transportation Dtr plans to transport at d/c Arrangement Additional Comment Possible HH RN pending progress post surgery Whiteboard Updated Yes in Patient Room with name and ext. # of Scale Model Maker Review Status In Process Please Provide Date 08/31/24 Initial DC Assessment Was Performed Next Review Type Continued Stay Review
[2024-08-31 09:00] VITALS: O2SAT 97
[2024-08-31] MEDS: METOPROLOL ER 25 MG TABLET 12.5 MG PO (17:18)
--- NOTE | 2024-08-31 17:59 | PM.PN.1 ---
Subjective Subjective Interval history: 89-year-old female with acute congestive heart failure and right colon cancer with hepatic metastasis admitted yesterday with increasing abdominal pain, nausea, and shortness of breath. Patient reports she was able to eat some cream of wheat this morning. She continues to have some nausea, but no emesis. She has not had a bowel movement since admission. She has been urinating fairly frequently with the IV furosemide she has been receiving. She denies any shortness of breath. Exam Vital Signs (past 8 hours): Fraction of Inspired Oxygen 28 SaO2/FiO2 Ratio 342 Oxygen Delivery Method Room Air Oxygen Flow Rate 2 Narrative Exam Narrative: GEN: Very pleasant elderly female, Alert and oriented x3, no acute distress, pale HEENT: Normocephalic, face symmetric CHEST: Respiratory excursions symmetric, coarse with fine crackles in the right base, otherwise clear to auscultation bilaterally CV: Regular rate and rhythm, no murmurs, rubs, gallops, PMI nondisplaced ABD: Soft, nontender, moderately distended, bowel sounds present in all 4 quadrants, no organomegaly or masses appreciated EXTR: Warm, well perfused, no clubbing/cyanosis/1+ nonpitting bilateral lower extremity edema SKIN: Warm and dry, without rash NEURO: Alert and oriented x3, nonfocal Objective Labs 08/31/24 04:45 08/31/24 04:45 Labs: Laboratory Results - last 24 hr 08/31/24 04:45 WBC 7.1 RBC 4.24 Hgb 9.1 L Hct 29.3 L MCV 69.2 L MCH 21.4 L MCHC 30.9 RDW 33.6 H Plt Count 284 Neut % (Auto) 79.8 H Lymph % (Auto) 8.6 L [place] % (Auto) 7.6 Eos % (Auto) 3.0 Baso % (Auto) 1.0 Neut # (Auto) 5700 Lymph # (Auto) 600 L [place] # (Auto) 500 Eos # (Auto) 200 Baso # (Auto) 100 Platelet Estimate Adequate on smear RBC Morphology See below Hypochromasia 2+ H Anisocytosis 3+ H Microcytosis 2+ H Sodium 134 L Potassium 4.2 Chloride 99 Carbon Dioxide 31 BUN 19 H Creatinine 1.25 H Estimated GFR 41 L BUN/Creatinine Ratio 15.2 Glucose 91 Calcium 8.8 [facility] Medical History (Updated 08/30/24 @ 11:32 by Kristine Eastman MD) Systolic heart failure Mass of colon Social History household members: none Smoking Status: Never smoker alcohol intake: never Assessment & Plan Assessment & Plan narrative: 1. Acute congestive heart failure exacerbation Patient was noted to have CHF during her last hospitalization. EF was noted to be 45-50%. She had a moderately dilated left atrium, mildly dilated RV, mildly dilated right atrium and mild tricuspid regurgitation. Suspect her CHF last week was in part due to severe chronic anemia due to chronic blood loss. Her CHF symptoms were improving after hospital discharge up until the night prior to admission when she developed abdominal pain, nausea and shortness of breath. She received furosemide in the emergency department yesterday and another dose this morning. She has been urinating. She does have some fine crackles in her lungs this morning. We will plan an additional dose of furosemide this evening. O2 sats are 97% on 2 liters/minute. Will continue close monitoring of her volume status. 2. Right mid colon circumferential cancer with upstream fluid and fecal retention with liver metastasis Discussed with Dr. Donovan today. He is worried about her increased abdominal distention today. He will be pursuing her right colectomy tomorrow. She is now NPO except for ice chips and medications. 3. Chronic blood-loss anemia Hemoglobin is stable at 9.1. It was 9.7 upon discharge on the . 4. CARYN versus CKD Creatinine is up slightly from 1.11-1.25. GFR is 41. Will need to monitor closely in light of her CHF, risk for 3rd spacing with her surgery tomorrow and advanced age and overall risk. Code status DNR Prophylaxis Hold heparin after this evening's dose. Disposition Acute care. Discussed admitting her to the ICU postoperatively Time-Based Coding :: [TOTAL MINUTES] spent with patient and on the chart (including review of chart, obtaining history, exam, reviewing outside data, placing orders, documenting exam and treatment plan, and counseling patient) on [DATE]. Quality VTE Deep Vein Thrombosis/Pulmonary Embolism Present on Admission: No
[2024-08-31 20:08] VITALS: BP 132/73; PULSE 74; RESP 16; TEMP 36; O2SAT 98
[2024-09-01] VITALS (18 sets, daily range): BP systolic 80–223; BP diastolic 38–111; PULSE 72–83; RESP 12–22; TEMP 35.7–36.4; O2SAT 91–99
--- NOTE | 2024-09-01 | PATH_ITS ---
[facility] Accession Number: [id number] No. of containers..02 Tissue . 01 Material submitted: . PART A: colon - COLON, RIGHT PART B: liver - LIVER BIOPSY . 01 Diagnosis: A. COLON, RIGHT HEMICOLECTOMY: Invasive adenocarcinoma, moderately differentiated, with the following features: . CAP REPORTING TEMPLATE: CASE SUMMARY: Colon Resection. Standard: AJCC 8. . SPECIMEN: Procedure: Right hemicolectomy. . TUMOR Tumor site: Ascending colon. Histologic type: Adenocarcinoma. Histologic grade: G2, moderately differentiated. Tumor size: Greatest dimension in centimeters: 6.4 cm. Tumor extent: Invades through muscularis propria into the pericolic tissue. Macroscopic tumor perforation: Not identified. Lymphatic and/or vascular invasion: Not identified. Perineural invasion: Not identified. Tumor budding score: Low (0-4). Treatment efect: No known presurgical therapy. . MARGINS Margin status for invasive carcinoma: All margins negative for invasive carcinoma. Closest margin to invasive carcinoma: Distal (tumor extends to within 5.8 cm of the distal margin). Margin status for non-invasive tumor: All margins negative for high-grade dysplasia/intramucosal carcinoma and low-grade dysplasia. . REGIONAL LYMPH NODES: Tumor present in regional lymph nodes. Number of lymph nodes with tumor: 2. Number of lymph nodes examined: 34. Tumor deposits: Not identified. . DISTANT METASTASIS Distant sites involved: Liver: Positive for metastatic adenocarcinoma (refer to part B). . PTNM CLASSIFICATION (AJCC 8TH EDITION) pT3 pN1b pM1 . ADDITIONAL FINDINGS: None identified. . B. LIVER, BIOPSY: Liver with involvement by adenocarcinoma compatible with metastatic colorectal adenocarcinoma. MRV 09/04/2024 1811 Local . 01 Electronically signed: . Navneet Ledbetter MD, Pathologist NPI- [id number] . 01 Gross description: . A. Received in formalin with two identifiers and right colon, is a right hemicolectomy with ileum (6.8 x 2.6 cm) attached to the cecum and right colon (20.7 cm in length with the cecum diameter measuring up to 8.7 cm and an area of narrowing 2.5 cm) with attached appendix (5.5 x 0.6 cm). The ileal margin is inked blue, the colon margin is inked black, and the mesenteric margin is inked green. The lumen is filled with patrick, semisolid fecal material. The mucosa has an annular mass identified at the area of narrowing. The mass measures 6.4 x 3.0 cm with the lumen narrowing down to 1.6 cm; however, the lumen is grossly patent. The mass is located 5.8 cm from the nearest black-inked colon margin and is widely free from all remaining margins. The mass extends through the wall and into the adjacent adipose tissue. . The remaining mucosa is patrick to erythematous with no additional lesions identified. The folds are diffusely attenuated. The [place] average 0.4 cm thick with no diverticula or perforations identified. The appendix has patrick, smooth serosa and sectioning reveals an unremarkable lumen up to 0.2 cm in greatest diameter. The [place] are patrick and average 0.3 cm thick with no perforation or lesions identified. . Palpation reveals 35 patrick to brown lymph node candidates ranging from 0.2 to 1.9 cm in greatest dimension. . Can Runner sections are submitted as follows: A1: Rep margins en face. A2-A3: Mass to normal mucosa and deepest extension. A4: Ileocecal valve. A5: Normal colon. A6: Normal ileum. A7: Appendix to include entire bisected distal tip and cross-sections. A8: Single serially sectioned lymph node candidate. A9-A10: Single, serially sectioned lymph node candidate. A11: Six intact lymph node candidates. A12: Six intact lymph node candidates. A13: Six intact lymph node candidates. A14: Six intact lymph node candidates. A15: Six intact lymph node candidates. A16: Three intact lymph node candidates. B. Received in formalin with two identifiers and liver biopsy, is a patrick to brown, roughened soft tissue fragment, 1.7 x 1.0 x 0.5 cm. The flattened cut surface is inked blue, and the specimen is serially sectioned and submitted entirely in B1. ([id number]) /MRV 09/04/2024 1811 Local . 01 Pathologist provided ICD-10: C18.2 . 01 CPT . 726713, [id number] Specimen Comment: A courtesy copy of this report has been sent to [facility] Pathology Performed at: [address] [address], [place], [place] [id number] MD Navneet Ledbetter MD Phone: [phone]
[2024-09-01 05:26] LABS: Add Manual Diff / Slide Review NO; Hematocrit 29.4 % (36-46); Hemoglobin 9.1 g/dL (12.0-16.0); Lymphocytes Absolute Auto 800 /uL (1100-4500); Mean Corpuscular HGB Conc 31.1 % (30-36); Mean Corpuscular Hemoglobin 21.7 PG (26-34); Mean Corpuscular Volume 69.7 fL (80-100); Platelet Count 275 X10^3/uL (150-400)
[2024-09-01 05:41] LABS: Blood Urea Nitrogen 20 mg/dL (7-17); Calcium 8.4 mg/dL (8.4-10.2); Carbon Dioxide 34 mmol/L (22-32); Chloride 96 mmol/L (98-107); Estimated Glomerular Filt Rate 35 mL/min (>60); Glucose 83 mg/dL (70-99); HEMOLYSIS < 15 (0-50); Potassium 3.8 mmol/L (3.4-5.1); Sodium 135 mmol/L (137-145)
[2024-09-01 06:17] LABS: Anisocytosis 3+; Microcytosis 2+
[2024-09-01 06:18] LABS: Hypochromasia 2+
[2024-09-01] MEDS: METOPROLOL ER 25 MG TABLET 12.5 MG PO (09:28)
[2024-09-01] MEDS: FUROSEMIDE 40 MG/4 ML VIAL IV (09:28)
[2024-09-01] MEDS: SODIUM CHLORIDE 0.9% FLUSH 10 ML IV (09:29)
--- NOTE | 2024-09-01 11:42 | CM.DPNOTE ---
DCP note Per chart review/multidisciplinary team in morning rounds, plan is for OR today for colon mass. per previous CM notes, pt hopeful for home with dtr at dc. CM team will continue to follow closely post OP for DCP recs. [facility]
--- NOTE | 2024-09-01 15:03 | SUR.OPER ---
Supine on padded OR bed, head on pillow, arms secured on padded arm boards at <90 degrees abduction, legs uncrossed, safety belt at thigh, tape over blanket over lower legs.
[2024-09-01] MEDS: ACETAMINOPHEN IV 1,000 MG/100 ML VIAL 400 MG IV (17:08)
[2024-09-01] MEDS: HYDROMORPHONE 1 MG INJ IV ×2 (17:25→17:34)
--- NOTE | 2024-09-01 17:27 | P.PN_ITS ---
Subjective Subjective Date Patient Seen: 09/01/24 Interval history: Chief complaint: Abdominal pain secondary to large cecal tumor and metastatic adenocarcinoma of the colon History of present illness: 08/30: 89-year-old with recent diagnosis of acute congestive heart failure as well as right colon cancer with hepatic metastasis (pending pathology) who presented to the emergency department with nausea, increasing abdominal pain, and an episode of shortness of breath overnight. Patient was previously admitted last week from August 22 through August 27 with severe anemia and congestive heart failure with anasarca. She also had acute kidney injury. An abnormal CT was noted with concerns for a colonic mass with possible metastatic findings. She was admitted and transfused, initiated on Lasix and an echocardiogram was done. She underwent workup of the colon mass with colonoscopy and biopsy and was transfused a total of 4 units packed red blood cells. Echocardiogram was performed which revealed an LVEF of 45-50%. She was discharged on furosemide 40 mg daily, potassium chloride, metoprolol and lisinopril. She was encouraged to follow up with General surgery in 1 week to obtain biopsy results. 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 She reports she was doing better from a standpoint of her congestive heart failure. She was able to walk to and from the bathroom without difficulty. She did have 1 episode of shortness of breath that began yesterday where she felt she had to ?think to breathe?. She also developed nausea yesterday without vomiting. She notes the nausea persisted this morning. She also developed some abdominal discomfort. She subsequently presented to the emergency department for evaluation. In the emergency department, labs revealed improvement overall with a hemoglobin of 9.2, creatinine 1.11, BNP was elevated at 8400 which was increased from prior value of 7490. Chest x-ray showed effusions with increased vascularity suggesting edema. Stable compared to prior. Abdominal pelvic CT revealed circumferential colon cancer in the right mid: With increasing upstream fluid and fecal retention. There is a left hepatic hypodense mass lesion consistent with metastasis. She was given furosemide 40 mg IV in the emergency department as well as ondansetron 4 mg IV. She was subsequently admitted Hospital course: 08/31: Responding to IV diuresis with improvement has not had a bowel movement since admission Discussed with Dr. Donovan . He is worried about her increased abdominal distention . He will be pursuing her right colectomy tomorrow. She is now NPO except for ice chips and medications. 09/01: Patient underwent right colectomy with reanastomosis an incisional biopsy of tumor at the dome of the liver. Pathology from previous colonoscopy demonstrated poorly differentiated adenocarcinoma Review of systems: Patient is sedated postoperative Physical exam: Vital signs stable Patient is sedated Heart and lungs clear Extremities no edema Assessment and plan: 1. Acute on chronic systolic congestive heart failure compensated tolerated surgery 2. 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 Disposition Acute care. Discussed admitting her to the ICU postoperatively Time-Based Coding :: 25 minutes spent with patient and on the chart (including review of chart, obtaining history, exam, reviewing outside data, placing orders, documenting exam and treatment plan, and counseling patient) Exam Vital Signs (past 8 hours): - 09/01/24 16:48 09/01/24 16:55 09/01/24 17:00 Temperature 97.6 F Pulse Rate 78 79 83 Respiratory Rate 16 22 22 Blood Pressure 142/65 H 149/71 H 133/63 Pulse Oximetry 93 99 92 Oxygen Delivery Method Simple Mask Room Air Room Air Oxygen Flow Rate 10 09/01/24 17:01 09/01/24 17:17 Temperature Pulse Rate 80 Respiratory Rate 20 Blood Pressure 130/59 L Pulse Oximetry 98 96 Oxygen Delivery Method Nasal Cannula Nasal Cannula Oxygen Flow Rate 2 2 Fraction of Inspired Oxygen 28 SaO2/FiO2 Ratio 342 Oxygen Delivery Method Nasal Cannula Oxygen Flow Rate 2 Objective Labs 09/01/24 04:52 09/01/24 04:52 Labs: Laboratory Results - last 24 hr 09/01/24 04:52 WBC 5.6 RBC 4.21 Hgb 9.1 L Hct 29.4 L MCV 69.7 L MCH 21.7 L MCHC 31.1 RDW 33.6 H Plt Count 275 Neut % (Auto) 69.0 Lymph % (Auto) 14.7 L [place] % (Auto) 10.7 Eos % (Auto) 4.7 H Baso % (Auto) 0.9 Neut # (Auto) 3800 Lymph # (Auto) 800 L [place] # (Auto) 600 Eos # (Auto) 300 Baso # (Auto) 0 Platelet Estimate Adequate on smear RBC Morphology See below Hypochromasia 2+ H Anisocytosis 3+ H Microcytosis 2+ H Sodium 135 L Potassium 3.8 Chloride 96 L Carbon Dioxide 34 H BUN 20 H Creatinine 1.44 H Estimated GFR 35 L BUN/Creatinine Ratio 13.9 Glucose 83 Calcium 8.4 PFSH Medical History (Updated 08/30/24 @ 11:32 by Kristine Eastman MD) Systolic heart failure Mass of colon Social History household members: none Smoking Status: Never smoker alcohol intake: never Assessment & Plan Time-Based Coding :: [TOTAL MINUTES] spent with patient and on the chart (including review of chart, obtaining history, exam, reviewing outside data, placing orders, documenting exam and treatment plan, and counseling patient) on [DATE]. Quality VTE Deep Vein Thrombosis/Pulmonary Embolism Present on Admission: No
[2024-09-01] MEDS: hydrOXYzine 50 MG/ML INJ 25 MG IM (17:28)
--- NOTE | 2024-09-01 18:32 | PC.NURSE ---
1820 pt to AC from PACU, VSS. Pt drowsy but arousable. Denies pain and is without signs/symptoms of distress. Aquacel dressing to midline abdomen Dry and intact with quarter sized shadow drainage to distal portion. Ice pack to midline abdomen. Valentine patent and pt educated about the same. Supportive daughter at bedside. Call light in reach.
[2024-09-01] MEDS: ONDANSETRON 4 MG/2 ML INJ IV (21:58)
[2024-09-02] MEDS: SODIUM CHLORIDE 0.9% 500 ML 1000 ML IV ×2 (00:06→09:19)
[2024-09-02] MEDS: METOCLOPRAMIDE 10 MG/2 ML INJ 5 MG IV (00:12)
[2024-09-02] MEDS: SODIUM CHLORIDE 0.9% 500 ML 250 ML IV ×2 (00:15→02:08)
[2024-09-02 01:40] VITALS: BP 80/52; PULSE 74; RESP 20; TEMP 35.9; O2SAT 99
[2024-09-02] MEDS: ONDANSETRON 4 MG/2 ML INJ IV ×4 (03:04→19:23)
[2024-09-02] MEDS: SODIUM CHLORIDE 0.9% 1,000 ML 1000 ML IV (03:40)
[2024-09-02] MEDS: SODIUM CHLORIDE 0.9% 1,000 ML 125 ML IV (04:41)
--- NOTE | 2024-09-02 04:44 | PC.NURSE ---
per RN, pts IV on left forearm got infiltrated and asked this senior underwriter to remove it. IV was removed 09/02/24 @4:37AM and intact.
--- NOTE | 2024-09-02 06:25 | DI.RAD.S_ITS ---
PROCEDURE: XR CHEST 1V INDICATIONS: verify ng tube placement TECHNIQUE: One view of the chest was acquired. COMPARISON: [facility], CT, CT ABDOMEN PELVIS W CON, 08/30/2024, 9:19. [facility], CR, XR CHEST 1V, 08/30/2024, 6:45. [facility], CR, XR CHEST 1V, 08/22/2024, 14:21. FINDINGS: Surgical changes and devices: Abdominal skin staple line. Enteric tube coursing into the stomach. Lungs and pleura: No pneumothorax. Small bilateral pleural effusions. Bibasilar hazy opacity. Mediastinum: Mediastinal contours appear normal. Heart size is normal. Bones and chest wall: No suspicious bony lesions. Overlying soft tissues appear unremarkable. IMPRESSION: Enteric tube coursing into the stomach. Dictated by: Jamel Gilliam M.D. on 09/02/2024 at 8:13 Approved by: Jamel Gilliam M.D. on 09/02/2024 at 8:22
[2024-09-02] MEDS: ALBUMIN HUMAN IV (06:53)
--- NOTE | 2024-09-02 07:38 | PC.NURSE ---
Addendum entered by Clara Aquino R.N. 09/02/24 08:38: 01:34 BP 81/48, MAP of 65. Dr. Méndez stated that he stopped lisinopril and MAP greater than 65. No further orders. 01:55 BP rechecked 76/44 with MAP of 56. Dr. Méndez ordered 500mL NS bolus. 03:11 Dr. Donovan notified regarding fluids/orders provided by Dr. Méndez. Dr. Donovan Gave order for additional 1L bolus of NS and start NS at 125/hr. BP recheck after bolus was 104/55, with MAP of 70. Pt has had nausea through the night and @ 06:00 this morning it was reported to me that she was having projectile vomiting that appeared to have some blood in it. Dr. Donovan gave order to place NG tube. Also, notified him that she has had very little urine output through the night and her BP was back down to 72/43 with MAP of 52. He gave order to give albumin and continue working on her. She stated that she was ready to go on hospice. Dr. Donovan aware and stated he would be in this morning to see her. Endorse Original Note: Late entry for 09/01/24- 22:35 Patient reported dizziness @ 22:30. BP 86/50 with MAP of 58, HR 77. Notified Dr. Méndez and received order for 500cc NS bolus. 23:57 BP rechecked with result of 88/52 and MAP of 65. Dr. Méndez notified and ordered 250mL NS bolus.
[2024-09-02 08:43] VITALS: BP 80/44; PULSE 88; RESP 22; TEMP 36.6; O2SAT 95
[2024-09-02] MEDS: SODIUM CHLORIDE 0.9% FLUSH 10 ML IV ×2 (09:19→22:14)
[2024-09-02] MEDS: MORPHINE 4 MG/ML INJ IV ×5 (14:03→21:38)
--- NOTE | 2024-09-02 15:49 | PM.PN.1 ---
Subjective Subjective Date Patient Seen: 09/02/24 Interval history: Chief complaint: Abdominal pain secondary to large cecal tumor and metastatic adenocarcinoma of the colon History of present illness: 08/30: 89-year-old with recent diagnosis of acute congestive heart failure as well as right colon cancer with hepatic metastasis (pending pathology) who presented to the emergency department with nausea, increasing abdominal pain, and an episode of shortness of breath overnight. Patient was previously admitted last week from August 22 through August 27 with severe anemia and congestive heart failure with anasarca. She also had acute kidney injury. An abnormal CT was noted with concerns for a colonic mass with possible metastatic findings. She was admitted and transfused, initiated on Lasix and an echocardiogram was done. She underwent workup of the colon mass with colonoscopy and biopsy and was transfused a total of 4 units packed red blood cells. Echocardiogram was performed which revealed an LVEF of 45-50%. She was discharged on furosemide 40 mg daily, potassium chloride, metoprolol and lisinopril. She was encouraged to follow up with General surgery in 1 week to obtain biopsy results. 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 She reports she was doing better from a standpoint of her congestive heart failure. She was able to walk to and from the bathroom without difficulty. She did have 1 episode of shortness of breath that began yesterday where she felt she had to ?think to breathe?. She also developed nausea yesterday without vomiting. She notes the nausea persisted this morning. She also developed some abdominal discomfort. She subsequently presented to the emergency department for evaluation. In the emergency department, labs revealed improvement overall with a hemoglobin of 9.2, creatinine 1.11, BNP was elevated at 8400 which was increased from prior value of 7490. Chest x-ray showed effusions with increased vascularity suggesting edema. Stable compared to prior. Abdominal pelvic CT revealed circumferential colon cancer in the right mid: With increasing upstream fluid and fecal retention. There is a left hepatic hypodense mass lesion consistent with metastasis. She was given furosemide 40 mg IV in the emergency department as well as ondansetron 4 mg IV. She was subsequently admitted Hospital course: 08/31: Responding to IV diuresis with improvement has not had a bowel movement since admission Discussed with Dr. Donovan . He is worried about her increased abdominal distention . He will be pursuing her right colectomy tomorrow. She is now NPO except for ice chips and medications. 09/01: Patient underwent right colectomy with reanastomosis an incisional biopsy of tumor at the dome of the liver. Pathology from previous colonoscopy demonstrated poorly differentiated adenocarcinoma 09/02: NG tube in place postop day 1 right colectomy and reanastomosis patient discussed options for palliative comfort and hospice care at this time we will continue NG tube and urinary catheter for comfort Review of systems: Patient is sedated postoperative Physical exam: Vital signs stable Patient is sedated Heart and lungs clear Extremities no edema Assessment and plan: 1. Acute on chronic systolic congestive heart failure compensated tolerated surgery 2. Right adenocarcinoma of the colon status post resection and biopsy 3. Continue NG tube for now and IV fluids but patient is placed on comfort measures Code status DNR Prophylaxis Hold heparin after this evening's dose. Disposition Acute care. Discussed admitting her to the ICU postoperatively Time-Based Coding :: 35 minutes spent with patient and on the chart (including review of chart, obtaining history, exam, reviewing outside data, placing orders, documenting exam and treatment plan, and counseling patient) Exam Vital Signs (past 8 hours): - 09/02/24 08:43 Temperature 97.9 F Pulse Rate 88 Respiratory Rate 22 Blood Pressure 80/44 L Pulse Oximetry 95 Fraction of Inspired Oxygen 28 SaO2/FiO2 Ratio 342 Oxygen Delivery Method Nasal Cannula Oxygen Flow Rate 4 Objective Labs 09/01/24 04:52 09/01/24 04:52 [facility] Medical History (Updated 09/02/24 @ 07:41 by Raciel Donovan MD) Systolic heart failure Mass of colon Social History household members: none Smoking Status: Never smoker alcohol intake: never Assessment & Plan Time-Based Coding :: [TOTAL MINUTES] spent with patient and on the chart (including review of chart, obtaining history, exam, reviewing outside data, placing orders, documenting exam and treatment plan, and counseling patient) on [DATE]. Quality VTE Deep Vein Thrombosis/Pulmonary Embolism Present on Admission: No
--- NOTE | 2024-09-02 16:01 | CM.DPNOTE ---
DCP note WIRE REPAIRER reviewed EMR per chart review, pt now deciding on hospice. Per provider in morning rounds will place [facility] orders. WIRE REPAIRER met with dtr and pt in room. confirmed preference dc home with hospice. preference [facility]. WIRE REPAIRER placed referral with [facility], spoke with Jo Ann. will review. DCP pending when hospice can open/arrangement with DME in home. CM team will continue to follow closely for DCP coordination [facility]
[2024-09-02 21:00] VITALS: BP 93/28; PULSE 90; RESP 12; TEMP 35.9
--- NOTE | 2024-09-03 05:41 | PC.NURSE ---
Pt passed peacefully at 05:00, no heart beat/ respirations present. Grandson present at bedside. Postmortem care complete. Coordinator aware.
--- NOTE | 2024-09-03 08:22 | PC.NURSE ---
Addendum entered by Sara Thao R.N. 09/03/24 08:49: [facility] here; transported facility. Ashleigh will chart picker there Original Note: [facility] will be transporting to their facility this morning
--- NOTE | 2024-09-03 10:18 | CM.DPNOTE ---
DCP note per chart review, pt overnight. 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
--- NOTE | 2024-09-03 19:47 | P.DN_ITS ---
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 Patient was previously admitted last week from August 22 through August 27 with severe anemia and congestive heart failure with anasarca. She also had acute kidney injury. An abnormal CT was noted with concerns for a colonic mass with possible metastatic findings. She was admitted and transfused, initiated on Lasix and an echocardiogram was done. She underwent workup of the colon mass with colonoscopy and biopsy and was transfused a total of 4 units packed red blood cells. Echocardiogram was performed which revealed an LVEF of 45-50%. She was discharged on furosemide 40 mg daily, potassium chloride, metoprolol and lisinopril. She was encouraged to follow up with General surgery in 1 week to obtain biopsy results. 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 She reports she was doing better from a standpoint of her congestive heart failure. She was able to walk to and from the bathroom without difficulty. She did have 1 episode of shortness of breath that began yesterday where she felt she had to ?think to breathe?. She also developed nausea yesterday without vomiting. She notes the nausea persisted this morning. She also developed some abdominal discomfort. She subsequently presented to the emergency department for evaluation. In the emergency department, labs revealed improvement overall with a hemoglobin of 9.2, creatinine 1.11, BNP was elevated at 8400 which was increased from prior value of 7490. Chest x-ray showed effusions with increased vascularity suggesting edema. Stable compared to prior. Abdominal pelvic CT revealed circumferential colon cancer in the right mid: With increasing upstream fluid and fecal retention. There is a left hepatic hypodense mass lesion consistent with metastasis. She was given furosemide 40 mg IV in the emergency department as well as ondansetron 4 mg IV. She was subsequently admitted Hospital course: 08/31: Responding to IV diuresis with improvement has not had a bowel movement since admission Discussed with Dr. Donovan . He is worried about her increased abdominal distention . He will be pursuing her right colectomy tomorrow. She is now NPO except for ice chips and medications. 09/01: Patient underwent right colectomy with reanastomosis an incisional biopsy of tumor at the dome of the liver. Pathology from previous colonoscopy demonstrated poorly differentiated adenocarcinoma 09/02: NG tube in place postop day 1 right colectomy and reanastomosis patient discussed options for palliative comfort and hospice care at this time we will continue NG tube and urinary catheter for comfort 09/03: At 4:00 a.m. patient was found unresponsive without breath heart sounds or pulse and declared :: 35 minutes spen Objective Labs 09/01/24 04:52 09/01/24 04:52
== END 2024-09-03 05:00 | disposition expired | DRG 329 ==
LOC: ED 11:46 → AC 12:01
PROVIDERS: Emergency Medicine; Surgery Trauma Surgery; Admitting Provider Family Medicine; Emergency Provider Emergency Medicine; Referring Provider Emergency Medicine; Visit Provider Family Medicine
PROC: 0DTF0ZZ Resection of Right Large Intestine, Open Approach (ICD-10-PCS; CPT 44140; principal; 2024-09-01 17:30)
DX: C18.2 Malignant neoplasm of ascending colon (principal); I50.23 Acute on chronic systolic (congestive) heart failure; C78.7 Secondary malignant neoplasm of liver and intrahepatic bile duct; N17.9 Acute kidney failure, unspecified; K56.609 Unspecified intestinal obstruction, unspecified as to partial versus complete obstruction; I07.1 Rheumatic tricuspid insufficiency; D50.0 Iron deficiency anemia secondary to blood loss (chronic); N18.9 Chronic kidney disease, unspecified; Z66 Do not resuscitate; Z51.5 Encounter for palliative care
CPT/HCPCS: 36415; 71045; 74177; 80048; 80053; 81003; 81015; 82550; 83690; 83880; 84484; 85025; 87077; 87086; 87186; 93005; 96374; 99284; J0131; J0330; J0696; J1100; J1171; J1644; J1938; J2270; J2405; J2704; J2765; J3010; J3360; J3410; J3490; P9045; Q9967